=== PATIENT | male | born 1945 | race African-American/Black ===

== ENCOUNTER 2017-04-02 09:18 | Observation (INO) | payer MEDICAID ==
[2017-04-02] VITALS (584 sets, daily range): BP systolic 147–160; BP diastolic 83–110; PULSE 60–76; TEMP 96.9–98.4; O2SAT 49–100
[~2017-04-02] VITALS: Ht 177.8 cm; Wt 58.9 kg
[~2017-04-02 09:18] MED LIST: ALDACTONE 25MG25 M1 PO; ASPI325T6 PO; ASPIRIN 81M81 MG/TA2 PO; ASPIRIN E.C. 8181 MG PO; CEPHALEXIN500 M1 PO; CLONIDINE0.2 MG PO; CORDARONE200 MG/TAB PO; DEMADEX 20MG20 M1 PO; DESYREL 50MG50 MG PO; DETROL LA4 PO; DIOVAN 80MG80 MG PO; FLOMAX 0.40.4 MG/CAP PO; INVANZ INJ1 G/VIAL IV; ISORDIL TITRADO30 MG PO; KLOR-CON M2020 MEQ PO; LANOXIN 0.120.125 MG PO; LASIX 40MG TABL40 MG PO; LASIX20 MG PO; LOPRESSOR100 MG PO; LOPRESSOR50 MG PO; NO HOME MEDICATIONS; NORCO 325 MG-51 TAB; NORCO 325 MG-51 TAB PO; NORCO 325 MG-7.1 TAB PO; PRIL40 PO; REMERON 15M15 MG/TA1 PO; RT SPIRIVA18 MCG IH; TOPROL XL100 MG PO; TOPROL XL200 MG PO; TYLENOL 325MG325 MG PO; VENTOLIN0.09 MG IH; XARELTO15 MG PO; XARELTO20 MG PO; ZANTAC 150MG T150 MG PO; ZANTAC 7575 MG PO; ZESTRIL 10MG10 MG PO; ZESTRIL 20MG TA20 MG PO; ZOFRAN 4MG T4 MG/TAB PO
[2017-04-02 09:42] LABS: BASO # 0.1 (0.0-0.2); EOS # 0.5 (0.0-0.7); EOS % 9.6 % (0-4.0); GRAN # 3.2 (1.4-6.5); GRAN % 64.5 % (42.2-75.2); LYMPH # 0.8 (1.2-3.4); LYMPH % 15.9 % (20.0-51.0); MEAN CELL VOLUME 76 fl (80.0-100.0); MEAN CORPUSCULAR HGB CONC 35 g/dl (33.0-37.0); MEAN PLATELET VOLUME 9.9 fl (7.4-10.4); MONO # 0.4 (0.1-0.6); MONO % 8.6 % (1.7-9.3); PLATELET COUNT 175 K/mm3 (130-400); RED BLOOD COUNT 3.86 M/mm3 (4.20-5.60); REDCELL DISTRIBUTION WIDTH-CV 21.9 % (11.5-14.5); WHITE BLOOD COUNT 4.9 K/mm3 (4.8-10.8)
[2017-04-02 09:45] LABS: INR 1.2 (0.8-3.0); PROTHROMBIN TIME 13.1 SECONDS (9.7-12.8)
[2017-04-02 09:47] LABS: HEMATOCRIT 29.2 % (42.0-52.0); HEMOGLOBIN 10.1 g/dl (13.5-18.0); MEAN CORPUSCULAR HEMOGLOBIN 26 pg (27.0-31.0); PARTIAL THROMBOPLASTIN TIME 33.4 SECONDS (26.0-37.0)
[2017-04-02 10:09] LABS: ADJUSTED CALCIUM 8.7 mg/dL (8.4-10.2); ALBUMIN 3.8 gm/dL (3.5-5.0); BILIRUBIN,TOTAL 5.4 mg/dL (0.0-1.0); CALCIUM 8.5 mg/dL (8.4-10.2); CREATININE, serum 1.06 mg/dL (0.66-1.25); POTASSIUM 3.9 mmol/L (3.4-5.0); TOTAL PROTEIN 7.4 gm/dL (6.4-8.2)
[2017-04-02 10:22] LABS: TROPONIN-I 0.036 ng/mL (0.000-0.034)
[2017-04-02] MEDS ORDERED: PRIL40 PO (14:02)
[2017-04-02] MEDS ORDERED: XARELTO20 MG PO (14:02)
[2017-04-02] MEDS ORDERED: K-DUR20 MEQ PO (14:03)
[2017-04-02] MEDS ORDERED: RT SPIRIVA18 MCG IH (14:05)
[2017-04-03] VITALS (494 sets, daily range): BP systolic 121–140; BP diastolic 71–91; PULSE 63–78; TEMP 96.5–98; O2SAT 40–100
[2017-04-03 06:20] LABS: BASO # 0.1 (0.0-0.2); EOS # 0.4 (0.0-0.7); EOS % 8.1 % (0-4.0); GRAN # 3.5 (1.4-6.5); GRAN % 68.9 % (42.2-75.2); LYMPH # 0.8 (1.2-3.4); LYMPH % 14.9 % (20.0-51.0); MEAN CELL VOLUME 75 fl (80.0-100.0); MEAN CORPUSCULAR HGB CONC 35 g/dl (33.0-37.0); MEAN PLATELET VOLUME 10.6 fl (7.4-10.4); MONO # 0.4 (0.1-0.6); MONO % 6.9 % (1.7-9.3); PLATELET COUNT 201 K/mm3 (130-400); RED BLOOD COUNT 4.34 M/mm3 (4.20-5.60); REDCELL DISTRIBUTION WIDTH-CV 21.8 % (11.5-14.5)
[2017-04-03 06:23] LABS: HEMATOCRIT 32.7 % (42.0-52.0); HEMOGLOBIN 11.3 g/dl (13.5-18.0); MEAN CORPUSCULAR HEMOGLOBIN 26 pg (27.0-31.0)
[2017-04-03 06:33] LABS: CALCIUM 8.7 mg/dL (8.4-10.2); CREATININE, serum 1.15 mg/dL (0.66-1.25); POTASSIUM 3.4 mmol/L (3.4-5.0)
[2017-04-03 06:48] LABS: TROPONIN-I 0.052 ng/mL (0.000-0.034)
[2017-04-03] MEDS ORDERED: INCRUSE EL62.5 MCG/A IH (10:15)
[2017-04-03] MEDS ORDERED: ASPI325T6 PO (10:16)
[2017-04-03] MEDS ORDERED: ZESTRIL 5MG5 MG PO (10:16)
[2017-04-03] MEDS ORDERED: NITROSTAT0.4 MG/TAB SL (10:16)
[2017-04-03] MEDS ORDERED: ASPIRIN 81M81 MG/TA2 PO (16:32)
[2017-04-03] MEDS ORDERED: RT SPIRIVA18 MCG IH (16:32)
== END 2017-04-03 18:17 | disposition home or self-care (01) ==
LOC: COL.ER 09:18 → MEDICAL 10:50 → ICU 10:50 → MEDICAL 10:50 → ICU 10:50 → MEDICAL 10:51 → ICU 04-03 08:14 → MEDICAL 04-03 12:32 → ICU 04-03 12:32 → MEDICAL 04-03 18:17
PROVIDERS: Emergency Medicine; Internal Medicine Interventional Cardiology; Physician Assistant
DX: R07.89 Other chest pain (principal); I50.23 Acute on chronic systolic (congestive) heart failure; J44.9 Chronic obstructive pulmonary disease, unspecified; D64.9 Anemia, unspecified; I12.9 Hypertensive chronic kidney disease with stage 1 through stage 4 chronic kidney disease, or unspecified chronic kidney disease; N18.9 Chronic kidney disease, unspecified; K21.9 Gastro-esophageal reflux disease without esophagitis; E80.7 Disorder of bilirubin metabolism, unspecified; N40.0 Benign prostatic hyperplasia without lower urinary tract symptoms; F17.210 Nicotine dependence, cigarettes, uncomplicated; Z91.11 Patient's noncompliance with dietary regimen; I25.2 Old myocardial infarction; Z86.718 Personal history of other venous thrombosis and embolism; Z79.01 Long term (current) use of anticoagulants; Z95.810 Presence of automatic (implantable) cardiac defibrillator
CPT/HCPCS: 99223-AI; 99239; G0378; J1650; J1940; J2270

== ENCOUNTER 2017-06-14 02:26 | Inpatient (IN) | payer MEDICAID ==
[2017-06-14] VITALS (376 sets, daily range): BP systolic 102–190; BP diastolic 69–120; PULSE 94–103; TEMP 97–97.5; O2SAT 37–100
[~2017-06-14] VITALS: Ht 175.3 cm; Wt 62.2 kg
[~2017-06-14 02:26] MED LIST changes: +INCRUSE EL62.5 MCG/A IH; +K-DUR20 MEQ PO; +NITROSTAT0.4 MG/TAB SL; +ZESTRIL 5MG5 MG PO
[2017-06-14 02:52] LABS: BASO # 0.1 (0.0-0.2); BASO % 1.4 % (0.0-2.0); EOS # 0.2 (0.0-0.7); EOS % 3.6 % (0-4.0); GRAN # 4.8 (1.4-6.5); HEMATOCRIT 31.4 % (42.0-52.0); HEMOGLOBIN 10.8 g/dl (13.5-18.0); LYMPH % 15.3 % (20.0-51.0); MEAN CELL VOLUME 77 fl (80.0-100.0); MEAN CORPUSCULAR HEMOGLOBIN 27 pg (27.0-31.0); MEAN CORPUSCULAR HGB CONC 34 g/dl (33.0-37.0); MEAN PLATELET VOLUME 9.9 fl (7.4-10.4); MONO # 0.5 (0.1-0.6); MONO % 7.4 % (1.7-9.3); PLATELET COUNT 221 K/mm3 (130-400); RED BLOOD COUNT 4.07 M/mm3 (4.20-5.60); REDCELL DISTRIBUTION WIDTH-CV 23.6 % (11.5-14.5); WHITE BLOOD COUNT 6.7 K/mm3 (4.8-10.8)
[2017-06-14 02:53] LABS: INR 1.2 (0.8-3.0); PROTHROMBIN TIME 13.7 SECONDS (9.7-12.8)
[2017-06-14 02:56] LABS: PARTIAL THROMBOPLASTIN TIME 33.8 SECONDS (26.0-37.0)
[2017-06-14 03:00] LABS: ADJUSTED CALCIUM 8.4 mg/dL (8.4-10.2); ALBUMIN 4.1 gm/dL (3.5-5.0); BILIRUBIN,TOTAL 5.5 mg/dL (0.0-1.0); CALCIUM 8.5 mg/dL (8.4-10.2); CREATININE, serum 1.33 mg/dL (0.66-1.25); MAGNESIUM 1.9 mg/dL (1.6-2.3); POTASSIUM 4.5 mmol/L (3.4-5.0)
[2017-06-14 03:12] LABS: TROPONIN-I 0.051 ng/mL (0.000-0.034)
[2017-06-14 04:56] LABS: ARTERIAL BLD GAS O2 SATURATION 85.2 % (92-100); ARTERIAL BLD GAS TCO2 CT 21.6; ARTERIAL BLOOD GAS BASE EXCESS -3.9 (-2-2); ARTERIAL BLOOD GAS HCO3 20.5 meq/L (22-26); ARTERIAL BLOOD GAS PHT 7.38 C (7.35-7.45); ARTERIAL BLOOD GAS PO2 52.1 mmHg (80-100); ARTERIAL BLOOD GAS PO2T 52.1 (80-100); ARTERIAL BLOOD GAS pH 7.38 (7.35-7.45); OXYHEMOGLOBIN 82.1 %
[2017-06-14 04:57] LABS: ALLEN TEST YES; ALLENS TEST RESULT PASS; ATS? YES
[2017-06-14 10:14] LABS: ARTERIAL BLD GAS TCO2 CT 22.5; ARTERIAL BLOOD GAS BASE EXCESS -6.3 (-2-2); ARTERIAL BLOOD GAS PHT 7.25 C (7.35-7.45); ARTERIAL BLOOD GAS PO2 98.4 mmHg (80-100); ARTERIAL BLOOD GAS PO2T 98.4 (80-100); ARTERIAL BLOOD GAS pH 7.25 (7.35-7.45); OXYHEMOGLOBIN 92.9 %
[2017-06-14 10:15] LABS: ABG VENTILATOR TIDAL VOLUME 450 mL; ATS? YES
[2017-06-14] MEDS ORDERED: IPRATROPIUM BROM3 M1 IH (10:49)
[2017-06-14] MEDS ORDERED: INCRUSE EL62.5 MCG/A IH (10:49)
[2017-06-14] MEDS ORDERED: HEPARIN SOD5000 U/ML SQ (10:50)
[2017-06-14] MEDS ORDERED: APRESOLINE 220 MG/ML IV (10:54)
[2017-06-14] MEDS ORDERED: LOPRESSOR I5 MG/5 ML IV (10:55)
[2017-06-14] MEDS ORDERED: ENALAPRILAT IV (10:59)
[2017-06-14] MEDS ORDERED: ASPIRIN 30300 MG/SUP RC (11:00)
[2017-06-14] MEDS ORDERED: SOLU-MEDRO40 MG/VIA1 IV (11:02)
[2017-06-14] MEDS ORDERED: PROTONIX I40 MG/VIAL IV (11:04)
== END 2017-06-14 12:20 | disposition short-term general hospital (02) | DRG 163 ==
LOC: COL.ER 02:26 → ICU 03:31 → COL.ER 03:31 → ICU 12:20
PROVIDERS: Emergency Medicine; Internal Medicine Pulmonary Disease; Nurse Practitioner Family
PROC: 0BH17EZ Insertion of Endotracheal Airway into Trachea, Via Natural or Artificial Opening (ICD-10-PCS; principal; 2017-06-14)
PROC: 0B968ZZ Drainage of Right Lower Lobe Bronchus, Via Natural or Artificial Opening Endoscopic (ICD-10-PCS; 2017-06-14)
PROC: 0B958ZZ Drainage of Right Middle Lobe Bronchus, Via Natural or Artificial Opening Endoscopic (ICD-10-PCS; 2017-06-14)
PROC: 0B988ZZ Drainage of Left Upper Lobe Bronchus, Via Natural or Artificial Opening Endoscopic (ICD-10-PCS; 2017-06-14)
PROC: 0B9B8ZZ Drainage of Left Lower Lobe Bronchus, Via Natural or Artificial Opening Endoscopic (ICD-10-PCS; 2017-06-14)
PROC: 5A1935Z Respiratory Ventilation, Less than 24 Consecutive Hours (ICD-10-PCS; 2017-06-14)
DX: J96.01 Acute respiratory failure with hypoxia (principal); I50.23 Acute on chronic systolic (congestive) heart failure; I13.0 Hypertensive heart and chronic kidney disease with heart failure and stage 1 through stage 4 chronic kidney disease, or unspecified chronic kidney disease; I42.0 Dilated cardiomyopathy; N18.9 Chronic kidney disease, unspecified; Z95.810 Presence of automatic (implantable) cardiac defibrillator; I25.10 Atherosclerotic heart disease of native coronary artery without angina pectoris; J44.9 Chronic obstructive pulmonary disease, unspecified; F17.210 Nicotine dependence, cigarettes, uncomplicated; I08.0 Rheumatic disorders of both mitral and aortic valves
CPT/HCPCS: 99223-AI; C9113; J1650; J1940; J2060; J2250; J2704; J2920; J3010; J7060

== ENCOUNTER 2017-07-16 08:47 | Inpatient (IN) | payer MEDICAID ==
[2017-07-16] VITALS (13 sets, daily range): BP systolic 113–147; BP diastolic 60–87; PULSE 60–71; TEMP 97.3–97.9
[~2017-07-16] VITALS: Ht 172.7 cm; Wt 60.9 kg
[~2017-07-16 08:47] MED LIST changes: +APRESOLINE 220 MG/ML IV; +ASPIRIN 30300 MG/SUP RC; +ENALAPRILAT IV; +HEPARIN SOD5000 U/ML SQ; +IPRATROPIUM BROM3 M1 IH; +LOPRESSOR I5 MG/5 ML IV; +PROTONIX I40 MG/VIAL IV; +SOLU-MEDRO40 MG/VIA1 IV
[2017-07-16 09:44] LABS: BASO % 0.3 % (0.0-2.0); EOS # 0.1 (0.0-0.7); GRAN # 8.2 (1.4-6.5); GRAN % 81.4 % (42.2-75.2); LYMPH # 0.8 (1.2-3.4); LYMPH % 8.3 % (20.0-51.0); MEAN CELL VOLUME 73 fl (80.0-100.0); MEAN CORPUSCULAR HGB CONC 33 g/dl (33.0-37.0); MEAN PLATELET VOLUME 10.6 fl (7.4-10.4); MONO # 0.8 (0.1-0.6); MONO % 8.3 % (1.7-9.3); PLATELET COUNT 316 K/mm3 (130-400); RED BLOOD COUNT 2.63 M/mm3 (4.20-5.60); REDCELL DISTRIBUTION WIDTH-CV 20.8 % (11.5-14.5); WHITE BLOOD COUNT 10.1 K/mm3 (4.8-10.8)
[2017-07-16 09:46] LABS: INR 1.3 (0.8-3.0); PROTHROMBIN TIME 14.1 SECONDS (9.7-12.8)
[2017-07-16 09:49] LABS: HEMATOCRIT 19.1 % (42.0-52.0); HEMOGLOBIN 6.3 g/dl (13.5-18.0); MEAN CORPUSCULAR HEMOGLOBIN 24 pg (27.0-31.0); PARTIAL THROMBOPLASTIN TIME 29.7 SECONDS (26.0-37.0)
[2017-07-16 09:51] LABS: ARTERIAL BLD GAS O2 SATURATION 95.3 % (92-100); ARTERIAL BLOOD GAS BASE EXCESS 2.4 (-2-2); ARTERIAL BLOOD GAS HCO3 25.9 meq/L (22-26); ARTERIAL BLOOD GAS PO2 83.6 mmHg (80-100); ARTERIAL BLOOD GAS pH 7.49 (7.35-7.45); OXYHEMOGLOBIN 92.8 %
[2017-07-16 09:53] LABS: ALLEN TEST YES; ALLENS TEST RESULT PASS; ATS? YES
[2017-07-16 10:04] LABS: ADJUSTED CALCIUM 8.8 mg/dL (8.4-10.2); BILIRUBIN,TOTAL 1.7 mg/dL (0.0-1.0); CREATININE, serum 1.25 mg/dL (0.66-1.25); POTASSIUM 3.5 mmol/L (3.4-5.0); TOTAL PROTEIN 6.8 gm/dL (6.4-8.2)
[2017-07-16 10:22] LABS: TROPONIN-I 0.092 ng/mL (0.000-0.034)
[2017-07-16] MEDS ORDERED: IMDUR 30MG30 MG/TAB PO (13:16)
[2017-07-16] MEDS ORDERED: ZIAC 10/6.25M1 UDTAB PO (13:17)
[2017-07-16] MEDS ORDERED: PROSCAR 5MG5 MG PO (13:17)
[2017-07-16] MEDS ORDERED: APRESOLINE 25MG25 MG PO (13:19)
[2017-07-16] MEDS ORDERED: PREDNISONE10 MG PO (13:20)
[2017-07-16] MEDS ORDERED: NITROSTAT0.4 MG/TAB SL (13:21)
[2017-07-16] MEDS ORDERED: ZANTAC 150MG T150 MG PO (13:22)
[2017-07-16] MEDS ORDERED: PRIL40 PO (13:22)
[2017-07-16] MEDS ORDERED: COLACE 100100 MG/CAP PO (13:23)
[2017-07-16] MEDS ORDERED: VENTOLIN0.09 MG IH (13:24)
[2017-07-16] MEDS ORDERED: ASPIRIN 81M81 MG/TA2 PO (13:24)
[2017-07-16] MEDS ORDERED: CHANTIX START M1 TAB PO (13:25)
[2017-07-16 14:51] LABS: HEMATOCRIT 17.8 % (42.0-52.0)
[2017-07-16 14:53] LABS: RETIC % 4.1 % (0.5-3.52)
[2017-07-16 15:55] LABS: TOTAL IRON BINDING CAPACITY 158 ug/dL (261-462)
[2017-07-16 16:22] LABS: FERRITIN 902 ng/mL (18-464)
[2017-07-17] VITALS (10 sets, daily range): BP systolic 105–150; BP diastolic 52–75; PULSE 41–86; TEMP 97.5–98.6
[2017-07-17 07:30] LABS: BASO % 0.4 % (0.0-2.0); EOS # 0.1 (0.0-0.7); EOS % 1.1 % (0-4.0); GRAN # 7.9 (1.4-6.5); GRAN % 82.7 % (42.2-75.2); LYMPH # 0.8 (1.2-3.4); LYMPH % 8.4 % (20.0-51.0); MEAN CELL VOLUME 73 fl (80.0-100.0); MEAN CORPUSCULAR HGB CONC 33 g/dl (33.0-37.0); MEAN PLATELET VOLUME 9.9 fl (7.4-10.4); MONO # 0.7 (0.1-0.6); MONO % 6.8 % (1.7-9.3); PLATELET COUNT 343 K/mm3 (130-400); RED BLOOD COUNT 3.19 M/mm3 (4.20-5.60); REDCELL DISTRIBUTION WIDTH-CV 20.3 % (11.5-14.5); WHITE BLOOD COUNT 9.6 K/mm3 (4.8-10.8)
[2017-07-17 07:35] LABS: HEMATOCRIT 23.4 % (42.0-52.0); HEMOGLOBIN 7.7 g/dl (13.5-18.0); MEAN CORPUSCULAR HEMOGLOBIN 24 pg (27.0-31.0)
[2017-07-17 07:44] LABS: CALCIUM 8.2 mg/dL (8.4-10.2); CREATININE, serum 1.17 mg/dL (0.66-1.25); MAGNESIUM 1.6 mg/dL (1.6-2.3); POTASSIUM 3.3 mmol/L (3.4-5.0)
[2017-07-17 08:50] LABS: PH 8 (5-8); SQUAMOUS EPITHELIAL 0-2 /hpf; URINE APPEARANCE Cloudy; URINE BACTERIA Rare /hpf; URINE BILIRUBIN Negative (NEGATIVE); URINE BLOOD 1+ (NEGATIVE); URINE COLOR Yellow; URINE GLUCOSE Negative (NEGATIVE); URINE KETONE Negative (NEGATIVE); URINE RBC 0-2 /hpf; URINE UROBILINOGEN Negative (NEGATIVE); URINE WBC >50 /hpf
[2017-07-17 15:48] LABS: HEMATOCRIT 24.6 % (42.0-52.0); HEMOGLOBIN 8.2 g/dl (13.5-18.0)
[2017-07-17 23:08] LABS: HEMATOCRIT 25.4 % (42.0-52.0); HEMOGLOBIN 8.4 g/dl (13.5-18.0)
[2017-07-18] VITALS (12 sets, daily range): BP systolic 129–161; BP diastolic 66–95; PULSE 61–74; TEMP 97.4–98.6
[2017-07-18 07:42] LABS: BASO % 0.2 % (0.0-2.0); EOS # 0.1 (0.0-0.7); EOS % 0.9 % (0-4.0); GRAN # 6.4 (1.4-6.5); GRAN % 79.2 % (42.2-75.2); LYMPH % 11.8 % (20.0-51.0); MEAN CELL VOLUME 76 fl (80.0-100.0); MEAN CORPUSCULAR HGB CONC 33 g/dl (33.0-37.0); MEAN PLATELET VOLUME 9.9 fl (7.4-10.4); MONO # 0.6 (0.1-0.6); MONO % 7.2 % (1.7-9.3); PLATELET COUNT 329 K/mm3 (130-400); RED BLOOD COUNT 3.06 M/mm3 (4.20-5.60); REDCELL DISTRIBUTION WIDTH-CV 21.8 % (11.5-14.5); WHITE BLOOD COUNT 8.1 K/mm3 (4.8-10.8)
[2017-07-18 07:44] LABS: HEMATOCRIT 23.2 % (42.0-52.0); HEMOGLOBIN 7.6 g/dl (13.5-18.0); MEAN CORPUSCULAR HEMOGLOBIN 25 pg (27.0-31.0)
[2017-07-18 07:57] LABS: CALCIUM 8.4 mg/dL (8.4-10.2); CREATININE, serum 1.15 mg/dL (0.66-1.25); POTASSIUM 4.1 mmol/L (3.4-5.0)
[2017-07-18 09:04] LABS: ERYTHROCYTE SEDIMENTATION RATE 35 mm/hr (0-30)
[2017-07-18 21:00] LABS: HEMATOCRIT 25.9 % (42.0-52.0); HEMOGLOBIN 8.8 g/dl (13.5-18.0)
[2017-07-19 03:13] VITALS: BP 167/78; PULSE 51; TEMP 97.5
[2017-07-19 05:32] LABS: BASO % 0.4 % (0.0-2.0); EOS # 0.1 (0.0-0.7); EOS % 0.6 % (0-4.0); GRAN # 7.7 (1.4-6.5); GRAN % 79.1 % (42.2-75.2); LYMPH # 1.2 (1.2-3.4); LYMPH % 11.9 % (20.0-51.0); MEAN CELL VOLUME 75 fl (80.0-100.0); MEAN CORPUSCULAR HGB CONC 33 g/dl (33.0-37.0); MEAN PLATELET VOLUME 9.7 fl (7.4-10.4); MONO # 0.7 (0.1-0.6); PLATELET COUNT 372 K/mm3 (130-400); RED BLOOD COUNT 3.39 M/mm3 (4.20-5.60); REDCELL DISTRIBUTION WIDTH-CV 22.4 % (11.5-14.5); WHITE BLOOD COUNT 9.8 K/mm3 (4.8-10.8)
[2017-07-19 05:39] LABS: HEMATOCRIT 25.4 % (42.0-52.0); HEMOGLOBIN 8.4 g/dl (13.5-18.0); MEAN CORPUSCULAR HEMOGLOBIN 25 pg (27.0-31.0)
[2017-07-19 05:41] LABS: CALCIUM 8.5 mg/dL (8.4-10.2); CREATININE, serum 1.21 mg/dL (0.66-1.25); POTASSIUM 4.5 mmol/L (3.4-5.0)
[2017-07-19 08:10] VITALS: BP 150/71; PULSE 67; TEMP 97.7
[2017-07-19 08:45] LABS: HAPTOGLOBIN 124 mg/dL (36-195)
[2017-07-19] MEDS ORDERED: IRON TABLETS325 MG PO (11:38)
[2017-07-19] MEDS ORDERED: IMDUR 30MG30 MG/TAB PO (11:39)
[2017-07-21 10:22] LABS: IEPS IGA 409 mg/dL (101-645); IEPS IGG 1915 mg/dL (540-1822); IEPS TP 6.4 g/dL (6.0-7.6)
[2017-07-21 13:21] LABS: ALBUMIN FRACTION 2.7 g/dL (2.6-4.5); ALBUMIN PERCENT 42.7 % (48.7-61.8); ALPHA 1 FRACTION 0.6 g/dL (0.3-0.5); ALPHA 2 FRACTION 0.7 g/dL (0.6-1.2); ALPHA 2 PERCENT 11.2 % (8.4-17.5); BETA 1 FRACTION 0.3 g/dL (0.4-0.6); BETA 1 PERCENT 4.9 % (5.4-8.9); BETA 2 FRACTION 0.4 g/dL (0.2-0.5); BETA 2 PERCENT 5.5 % (3.8-7.7); IEPS GAMMA FRACTION 1.7 g/dL (0.4-1.7); IEPS GAMMA PERCENTAGE 26.7 % (8.1-23.0); IEPS IGM 77 mg/dL (22-240)
[2017-07-22 18:54] LABS: KAPPA FREE LIGHT CHAIN-SERUM 12.9 mg/dL (())
[2017-07-23 15:23] LABS: HEMOGLOBIN A2 2.7 % (0.0-3.5); HEMOGLOBIN F <2.0 % (0.0-2.0)
== END 2017-07-19 12:58 | disposition home or self-care (01) | DRG 811 ==
LOC: COL.ER 08:47 → MEDICAL 10:47
PROVIDERS: Emergency Medicine; Internal Medicine; Internal Medicine Gastroenterology; Nurse Practitioner; Physician Assistant
PROC: 0DJ08ZZ Inspection of Upper Intestinal Tract, Via Natural or Artificial Opening Endoscopic (ICD-10-PCS; principal; 2017-07-18 15:15)
DX: D50.0 Iron deficiency anemia secondary to blood loss (chronic) (principal); I21.4 Non-ST elevation (NSTEMI) myocardial infarction; I13.0 Hypertensive heart and chronic kidney disease with heart failure and stage 1 through stage 4 chronic kidney disease, or unspecified chronic kidney disease; I50.22 Chronic systolic (congestive) heart failure; I42.0 Dilated cardiomyopathy; E44.0 Moderate protein-calorie malnutrition; Z66 Do not resuscitate; I25.10 Atherosclerotic heart disease of native coronary artery without angina pectoris; Z95.0 Presence of cardiac pacemaker; J44.9 Chronic obstructive pulmonary disease, unspecified; N18.9 Chronic kidney disease, unspecified; F17.210 Nicotine dependence, cigarettes, uncomplicated; E87.6 Hypokalemia
CPT/HCPCS: 99223-AI; 99232-AI; 99239; J2405; J3230; J7030; J7512; P9016

== ENCOUNTER 2017-08-15 09:13 | Emergency (ER) | payer MEDICAID ==
[~2017-08-15] VITALS: Ht 177.8 cm; Wt 72.7 kg
[~2017-08-15 09:13] MED LIST changes: +APRESOLINE 25MG25 MG PO; +CHANTIX START M1 TAB PO; +COLACE 100100 MG/CAP PO; +IMDUR 30MG30 MG/TAB PO; +IRON TABLETS325 MG PO; +PREDNISONE10 MG PO; +PROSCAR 5MG5 MG PO; +ZIAC 10/6.25M1 UDTAB PO
[2017-08-15 09:16] VITALS: TEMP 97.1
[2017-08-15 10:50] VITALS: BP 155/88; PULSE 61
== END 2017-08-15 10:50 | disposition home or self-care (01) ==
LOC: COL.ER 09:13
DX: M25.561 Pain in right knee (principal); I25.10 Atherosclerotic heart disease of native coronary artery without angina pectoris; I25.2 Old myocardial infarction; I11.0 Hypertensive heart disease with heart failure; I50.9 Heart failure, unspecified; J44.9 Chronic obstructive pulmonary disease, unspecified; F17.210 Nicotine dependence, cigarettes, uncomplicated; Z95.0 Presence of cardiac pacemaker; Z79.82 Long term (current) use of aspirin
CPT/HCPCS: L1830

== ENCOUNTER 2017-09-03 12:31 | Observation (INO) | payer MEDICAID ==
[~2017-09-03] VITALS: Ht 165.1 cm; Wt 68.9 kg
[2017-09-03 13:11] VITALS: BP 100/59; PULSE 74; TEMP 98
[2017-09-03] MEDS ORDERED: MIRALAX PA17 GM/Dose PO (13:26)
[2017-09-03] MEDS ORDERED: ENTRESTO 24 MG1 EACH PO (13:26)
[2017-09-03] MEDS ORDERED: DEMADEX 20MG20 M1 PO (13:27)
[2017-09-03 14:31] LABS: BASO # 0.1 (0.0-0.2); BASO % 0.8 % (0.0-2.0); EOS # 0.3 (0.0-0.7); EOS % 3.9 % (0-4.0); GRAN # 4.6 (1.4-6.5); GRAN % 73.3 % (42.2-75.2); LYMPH # 0.8 (1.2-3.4); LYMPH % 12.5 % (20.0-51.0); MEAN CELL VOLUME 78 fl (80.0-100.0); MEAN CORPUSCULAR HGB CONC 34 g/dl (33.0-37.0); MEAN PLATELET VOLUME 10.2 fl (7.4-10.4); MONO # 0.6 (0.1-0.6); MONO % 9.2 % (1.7-9.3); PLATELET COUNT 299 K/mm3 (130-400); RED BLOOD COUNT 4.24 M/mm3 (4.20-5.60); WHITE BLOOD COUNT 6.3 K/mm3 (4.8-10.8)
[2017-09-03 14:32] LABS: HEMATOCRIT 33.2 % (42.0-52.0); HEMOGLOBIN 11.3 g/dl (13.5-18.0); MEAN CORPUSCULAR HEMOGLOBIN 27 pg (27.0-31.0)
[2017-09-03 14:56] LABS: CALCIUM 8.2 mg/dL (8.4-10.2); CREATININE, serum 1.83 mg/dL (0.66-1.25); POTASSIUM 3.8 mmol/L (3.4-5.0)
[2017-09-03 15:07] LABS: TROPONIN-I 0.051 ng/mL (0.000-0.034)
[2017-09-03 15:18] LABS: THYROID STIMULATING HORMONE 3.61 uIU/mL (0.465-4.680)
[2017-09-03 16:04] VITALS: BP 115/76; PULSE 66; TEMP 97.6
[2017-09-03 19:40] VITALS: BP 142/77; PULSE 66; TEMP 98
[2017-09-03 23:22] VITALS: BP 156/87; PULSE 68; TEMP 98
[2017-09-04 02:54] VITALS: BP 158/97; PULSE 86; TEMP 97.3
[2017-09-04 07:39] VITALS: BP 140/93; PULSE 72; TEMP 97.5
[2017-09-04 11:25] VITALS: BP 143/73; PULSE 65; TEMP 97.6
[2017-09-04 15:35] VITALS: BP 130/72; PULSE 68; TEMP 97.5
== END 2017-09-04 17:31 | disposition home or self-care (01) ==
LOC: MEDICAL 12:31
PROVIDERS: Internal Medicine Interventional Cardiology
DX: I95.9 Hypotension, unspecified (principal); E78.5 Hyperlipidemia, unspecified; I13.0 Hypertensive heart and chronic kidney disease with heart failure and stage 1 through stage 4 chronic kidney disease, or unspecified chronic kidney disease; N18.9 Chronic kidney disease, unspecified; I50.22 Chronic systolic (congestive) heart failure; F17.210 Nicotine dependence, cigarettes, uncomplicated; Z90.79 Acquired absence of other genital organ(s); Z95.810 Presence of automatic (implantable) cardiac defibrillator; Z95.818 Presence of other cardiac implants and grafts
CPT/HCPCS: G0378; G0379

== ENCOUNTER → 2017-09-11 | Outpatient (CLI) | payer MEDICAID ==
[~2017-09-11] MED LIST changes: +ENTRESTO 24 MG1 EACH PO; +MIRALAX PA17 GM/Dose PO
== END ==
LOC: COL.PUL 13:00
DX: I50.9 Heart failure, unspecified (principal); R06.02 Shortness of breath; R05 Cough; F17.210 Nicotine dependence, cigarettes, uncomplicated

== ENCOUNTER → 2017-10-22 | Outpatient (CLI) | payer MEDICAID | LOC: COL.RAD 13:07 | DX: Z01.89 Encounter for other specified special examinations (principal) ==

== ENCOUNTER 2017-10-26 14:24 | Observation (INO) | payer MEDICAID ==
[~2017-10-26] VITALS: Ht 167.6 cm; Wt 66.5 kg
[~2017-10-26 14:24] MED LIST changes: +CHANTIX 1MG1 MG PO; -CHANTIX START M1 TAB PO
[2017-10-26 14:33] VITALS: BP 125/74; PULSE 82; TEMP 97.6
[2017-10-26] MEDS ORDERED: IMDUR 30MG30 MG/TAB PO (14:53)
[2017-10-26] MEDS ORDERED: LANOXIN 0.120.125 MG PO (14:54)
[2017-10-26] MEDS ORDERED: PROSCAR 5MG5 MG PO (14:54)
[2017-10-26] MEDS ORDERED: DEMADEX 20MG20 M1 PO (14:55)
[2017-10-26 16:34] LABS: BASO % 0.9 % (0.0-2.0); EOS # 0.3 (0.0-0.7); EOS % 6.7 % (0-4.0); GRAN # 3.1 (1.4-6.5); HEMATOCRIT 27.9 % (42.0-52.0); HEMOGLOBIN 9.4 g/dl (13.5-18.0); LYMPH # 0.8 (1.2-3.4); LYMPH % 17.4 % (20.0-51.0); MEAN CELL VOLUME 81 fl (80.0-100.0); MEAN CORPUSCULAR HEMOGLOBIN 27 pg (27.0-31.0); MEAN CORPUSCULAR HGB CONC 34 g/dl (33.0-37.0); MEAN PLATELET VOLUME 9.8 fl (7.4-10.4); MONO # 0.4 (0.1-0.6); MONO % 8.6 % (1.7-9.3); PLATELET COUNT 244 K/mm3 (130-400); RED BLOOD COUNT 3.46 M/mm3 (4.20-5.60); WHITE BLOOD COUNT 4.7 K/mm3 (4.8-10.8)
[2017-10-26 16:45] LABS: CALCIUM 8.5 mg/dL (8.4-10.2); CREATININE, serum 1.43 mg/dL (0.66-1.25); POTASSIUM 4.1 mmol/L (3.4-5.0)
[2017-10-26 17:39] VITALS: BP 150/82; PULSE 73; TEMP 99.1
[2017-10-26 21:49] VITALS: BP 104/48; BP 156/84; PULSE 72; PULSE 91; TEMP 98.4
[2017-10-27] VITALS (9 sets, daily range): BP systolic 109–161; BP diastolic 59–95; PULSE 66–100; TEMP 97.4–98.3
[2017-10-27 07:05] LABS: BASO # 0.1 (0.0-0.2); BASO % 1.1 % (0.0-2.0); EOS # 0.4 (0.0-0.7); EOS % 9.4 % (0-4.0); GRAN # 2.4 (1.4-6.5); GRAN % 55.3 % (42.2-75.2); LYMPH # 1.1 (1.2-3.4); LYMPH % 24.3 % (20.0-51.0); MEAN CELL VOLUME 79 fl (80.0-100.0); MEAN CORPUSCULAR HGB CONC 35 g/dl (33.0-37.0); MEAN PLATELET VOLUME 10.2 fl (7.4-10.4); MONO # 0.4 (0.1-0.6); MONO % 9.4 % (1.7-9.3); PLATELET COUNT 268 K/mm3 (130-400); RED BLOOD COUNT 3.67 M/mm3 (4.20-5.60); WHITE BLOOD COUNT 4.4 K/mm3 (4.8-10.8)
[2017-10-27 07:08] LABS: HEMATOCRIT 28.9 % (42.0-52.0); MEAN CORPUSCULAR HEMOGLOBIN 27 pg (27.0-31.0)
[2017-10-27 07:12] LABS: CALCIUM 8.9 mg/dL (8.4-10.2); CREATININE, serum 1.18 mg/dL (0.66-1.25); MAGNESIUM 1.9 mg/dL (1.6-2.3); POTASSIUM 3.8 mmol/L (3.4-5.0)
== END 2017-10-27 19:05 | disposition home or self-care (01) ==
LOC: SDCO 14:24 → SURG 14:25 → SDCO 10-27 14:45 → SURG 10-27 19:05
PROVIDERS: Internal Medicine
DX: D50.9 Iron deficiency anemia, unspecified (principal); K57.30 Diverticulosis of large intestine without perforation or abscess without bleeding; J44.9 Chronic obstructive pulmonary disease, unspecified; I42.8 Other cardiomyopathies; I13.0 Hypertensive heart and chronic kidney disease with heart failure and stage 1 through stage 4 chronic kidney disease, or unspecified chronic kidney disease; I50.9 Heart failure, unspecified; N18.9 Chronic kidney disease, unspecified; F17.210 Nicotine dependence, cigarettes, uncomplicated; Z86.718 Personal history of other venous thrombosis and embolism; K21.9 Gastro-esophageal reflux disease without esophagitis; N40.0 Benign prostatic hyperplasia without lower urinary tract symptoms
CPT/HCPCS: G0378; J2250; J2405; J3010; J7030

== ENCOUNTER 2017-12-22 12:23 | Emergency (ER) | payer MEDICAID ==
[~2017-12-22] VITALS: Ht 188 cm; Wt 81.8 kg
[2017-12-22 12:25] VITALS: TEMP 97
[2017-12-22 12:45] LABS: BASO # 0.1 (0.0-0.2); BASO % 1.3 % (0.0-2.0); EOS # 0.4 (0.0-0.7); EOS % 9.2 % (0-4.0); GRAN # 2.7 (1.4-6.5); GRAN % 59.6 % (42.2-75.2); LYMPH % 21.2 % (20.0-51.0); MEAN CELL VOLUME 83 fl (80.0-100.0); MEAN CORPUSCULAR HGB CONC 36 g/dl (33.0-37.0); MEAN PLATELET VOLUME 10.2 fl (7.4-10.4); MONO # 0.4 (0.1-0.6); MONO % 7.8 % (1.7-9.3); PLATELET COUNT 185 K/mm3 (130-400); RED BLOOD COUNT 3.94 M/mm3 (4.20-5.60); REDCELL DISTRIBUTION WIDTH-CV 21.7 % (11.5-14.5)
[2017-12-22 12:47] LABS: HEMATOCRIT 32.7 % (42.0-52.0); HEMOGLOBIN 11.7 g/dl (13.5-18.0); MEAN CORPUSCULAR HEMOGLOBIN 30 pg (27.0-31.0)
[2017-12-22 12:49] LABS: INR 1.1 (0.8-3.0); PROTHROMBIN TIME 12.4 SECONDS (9.7-12.8)
[2017-12-22 12:57] LABS: PARTIAL THROMBOPLASTIN TIME 31.1 SECONDS (26.0-37.0)
[2017-12-22 13:54] LABS: ALBUMIN 4.1 gm/dL (3.5-5.0); BILIRUBIN,TOTAL 4.4 mg/dL (0.0-1.0); CREATININE, serum 1.49 mg/dL (0.66-1.25)
[2017-12-22 14:06] LABS: TROPONIN-I 0.015 ng/mL (0.000-0.034)
[2017-12-22 17:15] VITALS: BP 127/80; PULSE 78
== END 2017-12-22 17:20 | disposition home or self-care (01) ==
LOC: COL.ER 12:23
PROVIDERS: Emergency Medicine
DX: R07.89 Other chest pain (principal); I11.0 Hypertensive heart disease with heart failure; I50.9 Heart failure, unspecified; I48.91 Unspecified atrial fibrillation; I25.2 Old myocardial infarction; J44.9 Chronic obstructive pulmonary disease, unspecified; K21.9 Gastro-esophageal reflux disease without esophagitis; N40.0 Benign prostatic hyperplasia without lower urinary tract symptoms; I42.8 Other cardiomyopathies; F17.210 Nicotine dependence, cigarettes, uncomplicated; Z86.73 Personal history of transient ischemic attack (TIA), and cerebral infarction without residual deficits; Z86.718 Personal history of other venous thrombosis and embolism; Z95.0 Presence of cardiac pacemaker; Z79.82 Long term (current) use of aspirin
CPT/HCPCS: Q9967

== ENCOUNTER → 2019-01-23 | Emergency (ER) | payer MEDICAID ==
[~2019-01-23] VITALS: Ht 180.3 cm; Wt 77.3 kg
[2019-01-23 20:45] VITALS: BP 184/99; TEMP 99.1
[2019-01-23 22:00] LABS: BASO # 0.1 (0.0-0.2); BASO % 1.1 % (0.0-2.0); EOS # 0.5 (0.0-0.7); EOS % 10.1 % (0-4.0); GRAN # 3.1 (1.4-6.5); GRAN % 65.7 % (42.2-75.2); HEMATOCRIT 29.6 % (42.0-52.0); HEMOGLOBIN 10.4 g/dl (13.5-18.0); LYMPH # 0.7 (1.2-3.4); LYMPH % 14.9 % (20.0-51.0); MEAN CELL VOLUME 78 fl (80.0-100.0); MEAN CORPUSCULAR HEMOGLOBIN 27 pg (27.0-31.0); MEAN CORPUSCULAR HGB CONC 35 g/dl (33.0-37.0); MONO # 0.4 (0.1-0.6); PLATELET COUNT 213 K/mm3 (130-400); REDCELL DISTRIBUTION WIDTH-CV 20.7 % (11.5-14.5)
[2019-01-23 22:14] LABS: ALANINE AMINOTRANSFERASE 16 U/L (21-72); ALBUMIN 3.9 gm/dL (3.5-5.0); ALKALINE PHOSPHATASE 78 U/L (50-136); ANION GAP 7 mmol/L (7-16); AST,SGOT 19 U/L (15-37); BILIRUBIN,TOTAL 2.8 mg/dL (0.0-1.0); BLOOD UREA NITROGEN 20 mg/dL (9-20); CALCIUM 8.6 mg/dL (8.4-10.2); CARBON DIOXIDE 28 mmol/L (22-30); CHLORIDE 104 mmol/L (98-107); CREATININE, serum 1.26 mg/dL (0.66-1.25); GLUCOSE 94 mg/dL (74-106); POTASSIUM 4.3 mmol/L (3.4-5.0); SODIUM 138 mmol/L (137-145); TOTAL PROTEIN 7.7 gm/dL (6.4-8.2)
[2019-01-23 22:17] LABS: C-REACTIVE PROTEIN < 0.5 mg/dL (0.0-0.9)
[2019-01-23 22:20] LABS: DIGOXIN 0.6 ng/mL (0.8-2.0)
[2019-01-23 22:22] LABS: TROPONIN-I 0.015 ng/mL (0.000-0.035)
[2019-01-23 23:25] VITALS: PULSE 78
== END ==
LOC: COL.ER 20:34
PROVIDERS: Emergency Medicine
DX: M54.12 Radiculopathy, cervical region (principal); J44.9 Chronic obstructive pulmonary disease, unspecified; I25.10 Atherosclerotic heart disease of native coronary artery without angina pectoris; F17.210 Nicotine dependence, cigarettes, uncomplicated; I10 Essential (primary) hypertension; Z95.0 Presence of cardiac pacemaker

== ENCOUNTER 2019-03-24 10:09 | Emergency (ER) | payer MEDICARE, MEDICAID ==
[~2019-03-24] VITALS: Ht 185.4 cm; Wt 63.6 kg
[2019-03-24 10:12] VITALS: TEMP 97.6
[2019-03-24 11:08] LABS: BASO % 0.8 % (0.0-2.0); EOS # 0.4 (0.0-0.7); EOS % 8.5 % (0-4.0); GRAN # 3.1 (1.4-6.5); GRAN % 60.6 % (42.2-75.2); LYMPH % 19.9 % (20.0-51.0); MEAN CELL VOLUME 81 fl (80.0-100.0); MEAN CORPUSCULAR HGB CONC 35 g/dl (33.0-37.0); MEAN PLATELET VOLUME 9.7 fl (7.4-10.4); MONO # 0.5 (0.1-0.6); MONO % 9.6 % (1.7-9.3); PLATELET COUNT 224 K/mm3 (130-400); RED BLOOD COUNT 3.45 M/mm3 (4.20-5.60); REDCELL DISTRIBUTION WIDTH-CV 21.3 % (11.5-14.5)
[2019-03-24 11:09] LABS: HEMOGLOBIN 9.7 g/dl (13.5-18.0); MEAN CORPUSCULAR HEMOGLOBIN 28 pg (27.0-31.0)
[2019-03-24 11:12] LABS: INR 1.2 (0.8-3.0); PROTHROMBIN TIME 13.5 SECONDS (9.7-12.8)
[2019-03-24 11:21] LABS: ALBUMIN 3.6 gm/dL (3.5-5.0); BILIRUBIN,TOTAL 2.2 mg/dL (0.0-1.0); CALCIUM 7.9 mg/dL (8.4-10.2); CREATININE, serum 1.92 (0.66-1.25); POTASSIUM 3.8 mmol/L (3.4-5.0)
[2019-03-24 11:31] LABS: TROPONIN-I 0.025 ng/mL (0.000-0.035)
[2019-03-24 13:30] VITALS: BP 108/72; PULSE 72
== END 2019-03-24 13:30 | disposition home or self-care (01) ==
LOC: COL.ER 10:09
PROVIDERS: Family Medicine
DX: E87.1 Hypo-osmolality and hyponatremia (principal); E86.0 Dehydration; Z95.0 Presence of cardiac pacemaker
CPT/HCPCS: J7040

== ENCOUNTER 2019-04-03 21:40 | Inpatient (IN) | payer MEDICAID ==
[~2019-04-03] VITALS: Ht 175.3 cm; Wt 64.9 kg
[2019-04-03 22:05] LABS: BASO # 0.1 (0.0-0.2); BASO % 0.9 % (0.0-2.0); EOS # 0.5 (0.0-0.7); EOS % 6.9 % (0-4.0); GRAN # 4.9 (1.4-6.5); GRAN % 70.7 % (42.2-75.2); HEMATOCRIT 28.7 % (42.0-52.0); HEMOGLOBIN 10.5 g/dl (13.5-18.0); LYMPH % 13.8 % (20.0-51.0); MEAN CELL VOLUME 78 fl (80.0-100.0); MEAN CORPUSCULAR HEMOGLOBIN 29 pg (27.0-31.0); MEAN CORPUSCULAR HGB CONC 37 g/dl (33.0-37.0); MEAN PLATELET VOLUME 10.5 fl (7.4-10.4); MONO # 0.5 (0.1-0.6); MONO % 7.4 % (1.7-9.3); PLATELET COUNT 233 K/mm3 (130-400); RED BLOOD COUNT 3.69 M/mm3 (4.20-5.60)
[2019-04-03 22:14] LABS: ALBUMIN 4.2 gm/dL (3.5-5.0); BILIRUBIN,TOTAL 2.1 mg/dL (0.0-1.0); CALCIUM 9.1 mg/dL (8.4-10.2); CREATININE, serum 2.64 (0.66-1.25); POTASSIUM 4.5 mmol/L (3.4-5.0); TOTAL PROTEIN 7.9 gm/dL (6.4-8.2)
[2019-04-03 22:25] LABS: TROPONIN-I 0.023 ng/mL (0.000-0.035)
[2019-04-03 23:18] LABS: COLLECTION METHOD CLEAN CATCH
--- NOTE | 2019-04-03 23:35 | NUR ---
Patient arrived, accompanied by JARED Sullivan. Patient ambulated from ED bed to ICU bed, no issues to report. Will assume care of patient at this time.
[2019-04-03 23:53] LABS: MUCOUS Present /lpf; PH 6 (5-8); URINE APPEARANCE Cloudy; URINE BACTERIA Rare /hpf; URINE BILIRUBIN Negative (NEGATIVE); URINE BLOOD 1+ (NEGATIVE); URINE COLOR Yellow; URINE GLUCOSE Negative (NEGATIVE); URINE KETONE Negative (NEGATIVE); URINE LEUKOCYTE ESTERASE 3+ (NEGATIVE); URINE NITRATE Negative (NEGATIVE); URINE PROTEIN(semi-quant) Negative (NEGATIVE); URINE UROBILINOGEN Negative (NEGATIVE)
[2019-04-04 00:11] VITALS: BP 107/76; PULSE 73; TEMP 98.5
--- NOTE | 2019-04-04 00:30 | NUR ---
Patient unreliable historian, unable to obtain medication list or reconciliation. Patient unsure of what he takes, set up by home health nurse weekly.
[2019-04-04] MEDS ORDERED: ISORDIL 20MG20 M1 PO (03:25)
[2019-04-04] MEDS ORDERED: ZANTAC 150MG T150 MG PO (03:25)
[2019-04-04] MEDS ORDERED: DULCOLAX STOOL100 MG PO (03:25)
[2019-04-04] MEDS ORDERED: ASPIRIN 81M81 MG/TA2 PO (03:26)
[2019-04-04] MEDS ORDERED: ZIAC 10/6.25M1 UDTAB PO (03:26)
[2019-04-04] MEDS ORDERED: FLOMAX 0.40.4 MG/CAP PO (03:27)
[2019-04-04] MEDS ORDERED: DEMADEX 20MG20 M1 PO (03:27)
[2019-04-04] MEDS ORDERED: PRIL40 PO (03:27)
[2019-04-04] MEDS ORDERED: NEURONTIN300 MG/CAP PO (03:28)
[2019-04-04 04:00] VITALS: BP 139/84; PULSE 69; TEMP 98
[2019-04-04 05:00] LABS: BASO % 0.7 % (0.0-2.0); EOS # 0.4 (0.0-0.7); EOS % 9.9 % (0-4.0); GRAN # 2.6 (1.4-6.5); GRAN % 60.6 % (42.2-75.2); LYMPH # 0.9 (1.2-3.4); LYMPH % 20.9 % (20.0-51.0); MEAN CELL VOLUME 80 fl (80.0-100.0); MEAN CORPUSCULAR HGB CONC 35 g/dl (33.0-37.0); MEAN PLATELET VOLUME 10.7 fl (7.4-10.4); MONO # 0.3 (0.1-0.6); MONO % 7.7 % (1.7-9.3); PLATELET COUNT 193 K/mm3 (130-400); RED BLOOD COUNT 3.41 M/mm3 (4.20-5.60); REDCELL DISTRIBUTION WIDTH-CV 20.2 % (11.5-14.5)
[2019-04-04 05:02] LABS: HEMATOCRIT 27.1 % (42.0-52.0); HEMOGLOBIN 9.6 g/dl (13.5-18.0); MEAN CORPUSCULAR HEMOGLOBIN 28 pg (27.0-31.0)
[2019-04-04 05:12] LABS: CALCIUM 8.3 mg/dL (8.4-10.2); CREATININE, serum 2.02 (0.66-1.25); MAGNESIUM 1.8 mg/dL (1.6-2.3)
[2019-04-04 08:00] VITALS: BP 121/75; PULSE 80; TEMP 97.9
--- NOTE | 2019-04-04 08:00 | NUR ---
Shift assessment complete at this time. Plan of care reviewed at bedside with patient. Additional time taken to address any other needs or concerns. Vitals stable at this time. Denies pain or any other discomfort. Bed in low position, call light within reach. Will continue to monitor.
[2019-04-04 09:02] LABS: CREATININE, serum 1.84 (0.66-1.25)
[2019-04-04 09:09] LABS: FRACTIONAL EXCRETION OF NA+ 2.1 %
[2019-04-04 12:00] VITALS: BP 106/63; PULSE 84; TEMP 97.9
--- NOTE | 2019-04-04 14:00 | NUR ---
Arrived to the room at this time. No pain or needs reported. No syncope with ambulation. The patient was oriented to the room and needs.
[2019-04-04 17:16] VITALS: BP 115/67; PULSE 68; TEMP 97.5
--- NOTE | 2019-04-04 19:46 | NUR ---
No change throughout the shift. Report given to JARED Fleming to resume care.
[2019-04-04 19:47] VITALS: BP 142/82; PULSE 83; TEMP 97.7
--- NOTE | 2019-04-04 20:30 | NUR ---
Shift assessment complete. Pt resting in bed, awake, a&o, cooperative c cares. Pt denies pain or any other c/o at this time. IV s complication. Tele in place. Pt denies needs. Call light in reach, bed alarm on. Will continue to monitor.
[2019-04-05] VITALS (10 sets, daily range): BP systolic 126–165; BP diastolic 66–105; PULSE 70–87; TEMP 97.6–98.4
--- NOTE | 2019-04-05 06:20 | NUR ---
Pt resting in bed, condition unchanged. Pt has been up to void several times tonight but has otherwise rested well. Continues to deny pain, SOB or any other c/o. Denies needs at this time. Call light in reach, bed alarm on.
[2019-04-05 07:16] LABS: EOS # 0.5 (0.0-0.7); EOS % 13.5 % (0-4.0); GRAN # 2.4 (1.4-6.5); GRAN % 59.9 % (42.2-75.2); HEMOGLOBIN 10.4 g/dl (13.5-18.0); LYMPH # 0.7 (1.2-3.4); LYMPH % 16.7 % (20.0-51.0); MEAN CELL VOLUME 81 fl (80.0-100.0); MEAN CORPUSCULAR HEMOGLOBIN 28 pg (27.0-31.0); MEAN CORPUSCULAR HGB CONC 35 g/dl (33.0-37.0); MEAN PLATELET VOLUME 10.4 fl (7.4-10.4); MONO # 0.3 (0.1-0.6); MONO % 8.2 % (1.7-9.3); PLATELET COUNT 190 K/mm3 (130-400); REDCELL DISTRIBUTION WIDTH-CV 20.1 % (11.5-14.5)
[2019-04-05 07:25] LABS: HEMATOCRIT 30.1 % (42.0-52.0)
[2019-04-05 07:28] LABS: CALCIUM 8.8 mg/dL (8.4-10.2); CREATININE, serum 1.49 (0.66-1.25); MAGNESIUM 1.9 mg/dL (1.6-2.3); POTASSIUM 4.6 mmol/L (3.4-5.0)
--- NOTE | 2019-04-05 09:00 | NUR ---
Initial assessment completed, no pain or needs reported. The patient is alert and oriented, minimal assistance with ambulation, but needs assistance ordering meals and with hygiene. The call light is in place.
--- NOTE | 2019-04-05 19:37 | NUR ---
No change throughout the day. The IV site was changed to the right forearm. Rocephin given as scheduled. Report given to JARED Fleming.
--- NOTE | 2019-04-05 20:27 | NUR ---
Shift assessment complete. Pt resting in bedside recliner, awake, a&o, cooperative c cares. Pt denies pain or any other c/o at this time. INT patent. Tele in place. Pt denies needs. Call light in reach, chair alarm on. Will continue to monitor.
[2019-04-06 04:00] VITALS: BP 143/76; PULSE 77; TEMP 97.7
[2019-04-06 06:23] LABS: MEAN CELL VOLUME 81 fl (80.0-100.0); MEAN CORPUSCULAR HGB CONC 34 g/dl (33.0-37.0); MEAN PLATELET VOLUME 10.3 fl (7.4-10.4); PLATELET COUNT 183 K/mm3 (130-400); RED BLOOD COUNT 3.52 M/mm3 (4.20-5.60); REDCELL DISTRIBUTION WIDTH-CV 20.1 % (11.5-14.5)
[2019-04-06 06:28] LABS: HEMATOCRIT 28.6 % (42.0-52.0); HEMOGLOBIN 9.8 g/dl (13.5-18.0); MEAN CORPUSCULAR HEMOGLOBIN 28 pg (27.0-31.0)
[2019-04-06 06:33] LABS: CALCIUM 8.7 mg/dL (8.4-10.2); CREATININE, serum 1.29 (0.66-1.25); MAGNESIUM 1.9 mg/dL (1.6-2.3); POTASSIUM 4.3 mmol/L (3.4-5.0)
[2019-04-06 06:54] LABS: ANISOCYTOSIS 2+; BASOPHIL 2 % (0-2); EOSINOPHIL 14 % (0-4); LYMPHOCYTE 22 % (20.0-51.0); NEUTROPHILS 58 % (42.0-75.2); PLATELET ESTIMATE NORMAL (NORMAL)
[2019-04-06 07:31] VITALS: BP 141/89; PULSE 71; TEMP 98.1
--- NOTE | 2019-04-06 07:46 | NUR ---
Assessment completed, alert/oriented, vital signs stable, denies pain or discomfort, stated he is "feeling better and wants to go home today", heart RRR/ distal pulses are palpable, lungs CTA/ no resp.difficulty noted, patient is sitting up in the chair / has been ambulating with stand by assist only / working with PT/OT who recommend mcc once discharged, he is eating breakfast at this time and denies other needs
--- NOTE | 2019-04-06 10:12 | NUR ---
SW attended clinical rounds to discuss discharge planning. Doctor reports patient might benefit from a skilled stay. Patient is agreeable but would prefer not to go to [facility]. Patient prefers [facility] and [facility]. Patient will be seen by PT and OT again to see if patient needs SNF. SW then met with patient about discharge plan. Patient lives in [facility]. Patient's PCP is Dr Ayala and he obtains prescriptions from [facility]. Patient reports he does not use any DME and he has a home health nurse for medication management. Patient does not remember which home health agency his nurse is with. Patient does not have a DPOA and is not interested in obtaining one. Patient signed choice form for [facility] and [facility]. SW faxed referral to both facilities.
--- NOTE | 2019-04-06 11:04 | NUR ---
SW spoke with PT and OT. Both do not recommend SNF or Home Health. Patient will discharge home today (04/06).
[2019-04-06 11:24] VITALS: BP 138/96; PULSE 73; TEMP 97.8
--- NOTE | 2019-04-06 11:24 | NUR ---
Initial visit; Patient thanked Boarder Machine for looking in on him and offering God's blessings.
[2019-04-06] MEDS ORDERED: OMNICEF 300MG300 MG PO (15:53)
[2019-04-06] MEDS ORDERED: ZEBETA10 MG PO (15:54)
[2019-04-06] MEDS ORDERED: DEMADEX 20MG20 M1 PO (15:55)
[2019-04-06 15:59] VITALS: BP 149/79; PULSE 71; TEMP 97.9
--- NOTE | 2019-04-06 17:09 | NUR ---
Patient will discharge home today (04/06). FRANK informed that patient does not have transportation home. FRANK contacted patient's insurance to arrange transportation. Trip # is [id number]. FRANK informed patient's nurse.
--- NOTE | 2019-04-06 18:19 | NUR ---
discharge orders discussed with patient, instructed to take medications as prescribed, follow up with Cardiology and PCP as we have scheduled for him, removed IV and tele, social work has set up transportation for him to get home, will escort him out the door when his ride arrives
--- NOTE | 2019-04-06 19:30 | NUR ---
Taxi service arrived et pt escorted out by RN.
== END 2019-04-06 19:30 | disposition home health service (06) | DRG 683 ==
LOC: COL.ER 21:40 → ICU 23:07 → MEDICAL 23:07
PROVIDERS: Emergency Medicine; Nurse Practitioner Family; ADMIT Family Medicine
DX: N17.9 Acute kidney failure, unspecified (principal); I13.0 Hypertensive heart and chronic kidney disease with heart failure and stage 1 through stage 4 chronic kidney disease, or unspecified chronic kidney disease; I50.22 Chronic systolic (congestive) heart failure; N39.0 Urinary tract infection, site not specified; I95.89 Other hypotension; N18.9 Chronic kidney disease, unspecified; F17.210 Nicotine dependence, cigarettes, uncomplicated; I25.10 Atherosclerotic heart disease of native coronary artery without angina pectoris; Z66 Do not resuscitate; I25.2 Old myocardial infarction; Z95.810 Presence of automatic (implantable) cardiac defibrillator; J44.9 Chronic obstructive pulmonary disease, unspecified; Z86.718 Personal history of other venous thrombosis and embolism; K21.9 Gastro-esophageal reflux disease without esophagitis; N40.0 Benign prostatic hyperplasia without lower urinary tract symptoms; D53.9 Nutritional anemia, unspecified; K80.20 Calculus of gallbladder without cholecystitis without obstruction; I69.328 Other speech and language deficits following cerebral infarction
CPT/HCPCS: 99222-AI; 99233-AI; 99239; A4216; J0696; J1644; J2185; J7030

== ENCOUNTER 2019-04-07 08:15 | Outpatient (RCR) | payer MEDICAID ==
[~2019-04-07 08:15] MED LIST changes: +DULCOLAX STOOL100 MG PO; +ISORDIL 20MG20 M1 PO; +NEURONTIN300 MG/CAP PO; +OMNICEF 300MG300 MG PO; +ZEBETA10 MG PO
[2019-05-08] MEDS ORDERED: LASIX 20MG TABL20 MG PO (10:36)
[2019-05-08] MEDS ORDERED: COLACE 100100 MG/CAP PO (10:37)
[2019-05-08] MEDS ORDERED: KLOR-CON20 MEQ PO (10:38)
[2019-05-08] MEDS ORDERED: K-DUR20 MEQ PO (15:55)
[2019-05-10] MEDS ORDERED: DEMADEX 20MG20 M1 PO (11:19)
[2019-05-11] MEDS ORDERED: FERRO-TIME325 MG PO (13:55)
[2019-05-11] MEDS ORDERED: ENTRESTO 24 MG1 EACH PO (13:56)
[2019-05-11] MEDS ORDERED: ELIQUIS 5MG PO (13:56)
[2019-05-11] MEDS ORDERED: ASPIRIN E.C. 8181 MG PO (13:57)
== END 2019-05-17 10:29 | disposition home or self-care (01) ==
LOC: MKS.ESL.PT 08:15
DX: M54.12 Radiculopathy, cervical region (principal)

== ENCOUNTER 2019-04-17 10:43 | Emergency (ER) | payer MEDICAID ==
[~2019-04-17] VITALS: Ht 175.3 cm; Wt 68.2 kg
[2019-04-17 10:45] VITALS: TEMP 97.6
[2019-04-17 11:03] LABS: PROTHROMBIN TIME 11.8 SECONDS (9.7-12.8)
[2019-04-17 11:06] LABS: BASO % 0.8 % (0.0-2.0); EOS # 0.5 (0.0-0.7); EOS % 10.4 % (0-4.0); GRAN # 2.8 (1.4-6.5); GRAN % 57.9 % (42.2-75.2); HEMOGLOBIN 10.3 g/dl (13.5-18.0); LYMPH # 1.1 (1.2-3.4); LYMPH % 21.5 % (20.0-51.0); MEAN CELL VOLUME 81 fl (80.0-100.0); MEAN CORPUSCULAR HEMOGLOBIN 29 pg (27.0-31.0); MEAN CORPUSCULAR HGB CONC 35 g/dl (33.0-37.0); MEAN PLATELET VOLUME 10.5 fl (7.4-10.4); MONO # 0.4 (0.1-0.6); PLATELET COUNT 188 K/mm3 (130-400); RED BLOOD COUNT 3.61 M/mm3 (4.20-5.60); REDCELL DISTRIBUTION WIDTH-CV 20.6 % (11.5-14.5)
[2019-04-17 11:08] LABS: ALBUMIN 3.9 gm/dL (3.5-5.0); BILIRUBIN,TOTAL 1.9 mg/dL (0.0-1.0); CALCIUM 8.5 mg/dL (8.4-10.2); CREATININE, serum 1.47 (0.66-1.25); POTASSIUM 4.4 mmol/L (3.4-5.0); TOTAL PROTEIN 7.5 gm/dL (6.4-8.2)
[2019-04-17 11:14] LABS: HEMATOCRIT 29.1 % (42.0-52.0)
[2019-04-17 11:20] LABS: TROPONIN-I 0.019 ng/mL (0.000-0.035)
[2019-04-17 14:51] VITALS: BP 162/94; PULSE 73
== END 2019-04-17 14:52 | disposition home or self-care (01) ==
LOC: COL.ER 10:43
PROVIDERS: Emergency Medicine
DX: R07.89 Other chest pain (principal); I50.9 Heart failure, unspecified; I25.10 Atherosclerotic heart disease of native coronary artery without angina pectoris; F17.210 Nicotine dependence, cigarettes, uncomplicated; Z95.0 Presence of cardiac pacemaker; Z86.718 Personal history of other venous thrombosis and embolism; Z79.82 Long term (current) use of aspirin
CPT/HCPCS: J3010

== ENCOUNTER → 2019-05-27 | Outpatient (CLI) | payer MEDICAID ==
[~2019-05-27] MED LIST changes: +ELIQUIS 5MG PO; +FERRO-TIME325 MG PO; +KLOR-CON20 MEQ PO; +LASIX 20MG TABL20 MG PO
== END ==
LOC: COL.RAD 08:56
DX: Z01.812 Encounter for preprocedural laboratory examination (principal); K80.70 Calculus of gallbladder and bile duct without cholecystitis without obstruction; R16.0 Hepatomegaly, not elsewhere classified; E80.6 Other disorders of bilirubin metabolism
CPT/HCPCS: Q9967

== ENCOUNTER → 2019-07-01 | Outpatient (CLI) | payer MEDICAID | LOC: COL.RAD 14:05 | DX: R79.89 Other specified abnormal findings of blood chemistry (principal) | CPT/HCPCS: Q9967 ==

== ENCOUNTER → 2019-07-05 | Outpatient (CLI) | payer MEDICAID ==
[2019-07-05 11:29] LABS: CALCIUM 8.2 mg/dL (8.4-10.2); CREATININE, serum 1.63 (0.66-1.25); POTASSIUM 4.3 mmol/L (3.4-5.0)
== END ==
LOC: COL.LAB 10:58
PROVIDERS: Nurse Practitioner
DX: Z01.89 Encounter for other specified special examinations (principal)

== ENCOUNTER 2019-08-02 14:31 | Emergency (ER) | payer MEDICAID ==
[~2019-08-02] VITALS: Ht 177.8 cm; Wt 70.5 kg
[2019-08-02 14:34] VITALS: TEMP 98.3
[2019-08-02 15:49] LABS: COLLECTION METHOD CLEAN CATCH
[2019-08-02 16:05] LABS: ALANINE AMINOTRANSFERASE 7 U/L (21-72); ALBUMIN 4.4 gm/dL (3.5-5.0); ALKALINE PHOSPHATASE 61 U/L (50-136); ANION GAP 10 mmol/L (7-16); AST,SGOT 24 U/L (15-37); BILIRUBIN,TOTAL 3.8 mg/dL (0.0-1.0); BLOOD UREA NITROGEN 31 mg/dL (9-20); CALCIUM 9.1 mg/dL (8.4-10.2); CARBON DIOXIDE 27 mmol/L (22-30); CHLORIDE 105 mmol/L (98-107); CREATININE, serum 2.03 (0.66-1.25); EOS # 0.4 (0.0-0.7); GLUCOSE 97 mg/dL (74-106); GRAN # 2.7 (1.4-6.5); GRAN % 64.3 % (42.2-75.2); HEMOGLOBIN 10.7 g/dl (13.5-18.0); LYMPH # 0.7 (1.2-3.4); LYMPH % 15.8 % (20.0-51.0); MEAN CELL VOLUME 80 fl (80.0-100.0); MEAN CORPUSCULAR HEMOGLOBIN 27 pg (27.0-31.0); MEAN CORPUSCULAR HGB CONC 35 g/dl (33.0-37.0); MEAN PLATELET VOLUME 10.3 fl (7.4-10.4); MONO # 0.4 (0.1-0.6); MONO % 8.7 % (1.7-9.3); PLATELET COUNT 214 K/mm3 (130-400); POTASSIUM 3.8 mmol/L (3.4-5.0); REDCELL DISTRIBUTION WIDTH-CV 22.5 % (11.5-14.5); SODIUM 142 mmol/L (137-145); TOTAL PROTEIN 8.4 gm/dL (6.4-8.2)
[2019-08-02 16:06] LABS: C-REACTIVE PROTEIN < 0.5 mg/dL (0.0-0.9)
[2019-08-02 16:10] LABS: MUCOUS Present /lpf; PH 6 (5-8); URINE APPEARANCE Cloudy; URINE BACTERIA Many /hpf; URINE BILIRUBIN Negative (NEGATIVE); URINE BLOOD Negative (NEGATIVE); URINE COLOR Yellow; URINE GLUCOSE Negative (NEGATIVE); URINE KETONE Negative (NEGATIVE); URINE LEUKOCYTE ESTERASE 3+ (NEGATIVE); URINE NITRATE Positive (NEGATIVE); URINE PROTEIN(semi-quant) 1+ (NEGATIVE); URINE UROBILINOGEN Negative (NEGATIVE)
[2019-08-02 16:14] LABS: TROPONIN-I 0.018 ng/mL (0.000-0.035)
[2019-08-02 18:43] VITALS: BP 114/81; PULSE 70
== END 2019-08-02 18:47 | disposition short-term general hospital (02) ==
LOC: COL.ER 14:31
PROVIDERS: Emergency Medicine
DX: N39.0 Urinary tract infection, site not specified (principal); N18.9 Chronic kidney disease, unspecified; R06.00 Dyspnea, unspecified; I13.0 Hypertensive heart and chronic kidney disease with heart failure and stage 1 through stage 4 chronic kidney disease, or unspecified chronic kidney disease; I50.9 Heart failure, unspecified; I25.10 Atherosclerotic heart disease of native coronary artery without angina pectoris; J44.9 Chronic obstructive pulmonary disease, unspecified; F17.210 Nicotine dependence, cigarettes, uncomplicated; Z86.73 Personal history of transient ischemic attack (TIA), and cerebral infarction without residual deficits; Z86.718 Personal history of other venous thrombosis and embolism; Z79.01 Long term (current) use of anticoagulants; Z79.82 Long term (current) use of aspirin
CPT/HCPCS: J0696; J7030; J7040; J7512

== ENCOUNTER 2019-08-08 11:13 | Emergency (ER) | payer MEDICAID ==
[~2019-08-08] VITALS: Ht 188 cm; Wt 75.0 kg
[2019-08-08 11:18] VITALS: TEMP 98.2
[2019-08-08 11:40] LABS: BASO # 0.1 (0.0-0.2); BASO % 1.2 % (0.0-2.0); EOS # 0.5 (0.0-0.7); EOS % 12.3 % (0-4.0); GRAN # 2.3 (1.4-6.5); GRAN % 53.6 % (42.2-75.2); LYMPH # 0.9 (1.2-3.4); LYMPH % 22.3 % (20.0-51.0); MEAN CELL VOLUME 79 fl (80.0-100.0); MEAN CORPUSCULAR HEMOGLOBIN 28 pg (27.0-31.0); MEAN CORPUSCULAR HGB CONC 35 g/dl (33.0-37.0); MEAN PLATELET VOLUME 10.6 fl (7.4-10.4); MONO # 0.4 (0.1-0.6); MONO % 10.4 % (1.7-9.3); PLATELET COUNT 208 K/mm3 (130-400); RED BLOOD COUNT 3.98 M/mm3 (4.20-5.60); REDCELL DISTRIBUTION WIDTH-CV 22.3 % (11.5-14.5)
[2019-08-08 11:41] LABS: HEMATOCRIT 31.6 % (42.0-52.0)
[2019-08-08 11:55] LABS: ALANINE AMINOTRANSFERASE 19 U/L (21-72); ALBUMIN 4.2 gm/dL (3.5-5.0); ALKALINE PHOSPHATASE 61 U/L (50-136); ANION GAP 9 mmol/L (7-16); AST,SGOT 31 U/L (15-37); BILIRUBIN,TOTAL 2.5 mg/dL (0.0-1.0); BLOOD UREA NITROGEN 31 mg/dL (9-20); CALCIUM 8.8 mg/dL (8.4-10.2); CARBON DIOXIDE 29 mmol/L (22-30); CHLORIDE 105 mmol/L (98-107); CREATININE, serum 1.42 (0.66-1.25); GLUCOSE 97 mg/dL (74-106); LIPASE 87 U/L (23-300); POTASSIUM 3.6 mmol/L (3.4-5.0); SODIUM 143 mmol/L (137-145)
[2019-08-08 11:59] LABS: C-REACTIVE PROTEIN < 0.5 mg/dL (0.0-0.9)
[2019-08-08 12:04] LABS: TROPONIN-I 0.021 ng/mL (0.000-0.035)
[2019-08-08 12:26] LABS: COLLECTION METHOD CLEAN CATCH
[2019-08-08 12:36] LABS: MUCOUS Present /lpf; PH 7 (5-8); SQUAMOUS EPITHELIAL 0-2 /hpf; URINE APPEARANCE Clear; URINE BACTERIA None Seen /hpf; URINE BILIRUBIN Negative (NEGATIVE); URINE BLOOD Negative (NEGATIVE); URINE COLOR Yellow; URINE GLUCOSE Negative (NEGATIVE); URINE KETONE Negative (NEGATIVE); URINE LEUKOCYTE ESTERASE Negative (NEGATIVE); URINE NITRATE Negative (NEGATIVE); URINE PROTEIN(semi-quant) Negative (NEGATIVE); URINE RBC 0-2 /hpf; URINE UROBILINOGEN Negative (NEGATIVE)
[2019-08-08] MEDS ORDERED: NORCO 325 MG-51 TAB PO (13:04)
[2019-08-08] MEDS ORDERED: ZOFRAN ODT4 MG PO (13:04)
[2019-08-08 13:33] VITALS: BP 95/66; PULSE 74
== END 2019-08-08 13:17 | disposition home or self-care (01) ==
LOC: COL.ER 11:13
PROVIDERS: Physician Assistant
DX: R10.10 Upper abdominal pain, unspecified (principal); I25.10 Atherosclerotic heart disease of native coronary artery without angina pectoris; I48.91 Unspecified atrial fibrillation; I11.0 Hypertensive heart disease with heart failure; I50.9 Heart failure, unspecified; K21.9 Gastro-esophageal reflux disease without esophagitis; E78.5 Hyperlipidemia, unspecified; J44.9 Chronic obstructive pulmonary disease, unspecified; F17.210 Nicotine dependence, cigarettes, uncomplicated; Z86.718 Personal history of other venous thrombosis and embolism; Z95.0 Presence of cardiac pacemaker; Z79.02 Long term (current) use of antithrombotics/antiplatelets; Z79.01 Long term (current) use of anticoagulants; Z79.82 Long term (current) use of aspirin
CPT/HCPCS: J1170; J2405; J7030

== ENCOUNTER 2019-08-27 12:49 | Emergency (ER) | payer MEDICAID ==
[~2019-08-27] VITALS: Ht 188 cm; Wt 79.5 kg
[~2019-08-27 12:49] MED LIST changes: +ZOFRAN ODT4 MG PO
[2019-08-27 12:50] VITALS: TEMP 97.5
[2019-08-27 13:18] LABS: COLLECTION METHOD CLEAN CATCH
[2019-08-27 13:42] LABS: MUCOUS Present /lpf; PH 7 (5-8); SQUAMOUS EPITHELIAL 0-2 /hpf; URINE APPEARANCE Hazy; URINE BACTERIA Occasional /hpf; URINE BILIRUBIN Negative (NEGATIVE); URINE BLOOD Negative (NEGATIVE); URINE COLOR Yellow; URINE GLUCOSE Negative (NEGATIVE); URINE KETONE Negative (NEGATIVE); URINE LEUKOCYTE ESTERASE 3+ (NEGATIVE); URINE NITRATE Positive (NEGATIVE); URINE PROTEIN(semi-quant) Negative (NEGATIVE)
[2019-08-27 13:54] LABS: BASO # 0.1 (0.0-0.2); BASO % 1.3 % (0.0-2.0); EOS # 0.5 (0.0-0.7); EOS % 13.9 % (0-4.0); GRAN # 2.2 (1.4-6.5); GRAN % 56.2 % (42.2-75.2); HEMOGLOBIN 10.7 g/dl (13.5-18.0); LYMPH # 0.8 (1.2-3.4); LYMPH % 20.2 % (20.0-51.0); MEAN CELL VOLUME 81 fl (80.0-100.0); MEAN CORPUSCULAR HEMOGLOBIN 28 pg (27.0-31.0); MEAN CORPUSCULAR HGB CONC 35 g/dl (33.0-37.0); MEAN PLATELET VOLUME 10.3 fl (7.4-10.4); MONO # 0.3 (0.1-0.6); MONO % 8.1 % (1.7-9.3); PLATELET COUNT 195 K/mm3 (130-400); RED BLOOD COUNT 3.81 M/mm3 (4.20-5.60); REDCELL DISTRIBUTION WIDTH-CV 22.6 % (11.5-14.5)
[2019-08-27 13:55] LABS: HEMATOCRIT 30.9 % (42.0-52.0)
[2019-08-27 13:58] LABS: PROTHROMBIN TIME 11.2 SECONDS (9.7-12.8)
[2019-08-27 14:07] LABS: ALBUMIN 4.4 gm/dL (3.5-5.0); BILIRUBIN,TOTAL 3.2 mg/dL (0.0-1.0); CREATININE, serum 1.56 (0.66-1.25); POTASSIUM 4.4 mmol/L (3.4-5.0); TOTAL PROTEIN 8.4 gm/dL (6.4-8.2)
[2019-08-27] MEDS ORDERED: OMNICEF 300MG300 MG PO (14:33)
[2019-08-27 14:54] VITALS: BP 129/77; PULSE 59
== END 2019-08-27 15:15 | disposition home or self-care (01) ==
LOC: COL.ER 12:49
PROVIDERS: Family Medicine
DX: N39.0 Urinary tract infection, site not specified (principal); I48.91 Unspecified atrial fibrillation; J44.9 Chronic obstructive pulmonary disease, unspecified; N40.0 Benign prostatic hyperplasia without lower urinary tract symptoms; K21.9 Gastro-esophageal reflux disease without esophagitis; I10 Essential (primary) hypertension; F17.210 Nicotine dependence, cigarettes, uncomplicated; Z79.82 Long term (current) use of aspirin
CPT/HCPCS: J0696

== ENCOUNTER 2019-09-13 11:06 | Emergency (ER) | payer MEDICAID ==
[~2019-09-13] VITALS: Ht 172.7 cm; Wt 81.8 kg
[2019-09-13 11:07] VITALS: TEMP 98
[2019-09-13 11:31] LABS: COLLECTION METHOD CLEAN CATCH
[2019-09-13 11:48] LABS: PH 7 (5-8); SQUAMOUS EPITHELIAL 0-2 /hpf; URINE APPEARANCE Clear; URINE BACTERIA None Seen /hpf; URINE BILIRUBIN Negative (NEGATIVE); URINE BLOOD Negative (NEGATIVE); URINE COLOR Yellow; URINE GLUCOSE Negative (NEGATIVE); URINE KETONE Negative (NEGATIVE); URINE LEUKOCYTE ESTERASE Trace (NEGATIVE); URINE NITRATE Negative (NEGATIVE); URINE PROTEIN(semi-quant) Negative (NEGATIVE); URINE RBC 0-2 /hpf; URINE UROBILINOGEN Negative (NEGATIVE)
[2019-09-13 12:04] LABS: BASO % 0.9 % (0.0-2.0); EOS # 0.4 (0.0-0.7); GRAN % 67.3 % (42.2-75.2); LYMPH # 0.7 (1.2-3.4); LYMPH % 16.9 % (20.0-51.0); MEAN CELL VOLUME 81 fl (80.0-100.0); MEAN CORPUSCULAR HGB CONC 35 g/dl (33.0-37.0); MEAN PLATELET VOLUME 10.9 fl (7.4-10.4); MONO # 0.3 (0.1-0.6); MONO % 6.4 % (1.7-9.3); PLATELET COUNT 223 K/mm3 (130-400); RED BLOOD COUNT 3.35 M/mm3 (4.20-5.60); REDCELL DISTRIBUTION WIDTH-CV 21.1 % (11.5-14.5)
[2019-09-13 12:06] LABS: HEMATOCRIT 27.2 % (42.0-52.0); HEMOGLOBIN 9.4 g/dl (13.5-18.0); MEAN CORPUSCULAR HEMOGLOBIN 28 pg (27.0-31.0)
[2019-09-13 12:07] LABS: ALBUMIN 4.1 gm/dL (3.5-5.0); BILIRUBIN,TOTAL 3.3 mg/dL (0.0-1.0); CALCIUM 8.7 mg/dL (8.4-10.2); CREATININE, serum 1.73 (0.66-1.25); POTASSIUM 3.6 mmol/L (3.4-5.0); TOTAL PROTEIN 7.9 gm/dL (6.4-8.2)
[2019-09-13] MEDS ORDERED: CEPHALEXIN500 M1 PO (13:10)
[2019-09-13 14:20] VITALS: BP 128/87; PULSE 87
--- NOTE | 2019-09-13 16:47 | NUR ---
MARIELY jaramillo met with the patient, the patient is on CCT. MARIELY jaramillo asked the patient about winter gear, food and his job. The patient reports he has lots of coats and has plenty of food. The patient reports he still works on Saturdays at [employer]. MARIELY jaramillo provided a taxi voucher for the patient. MARIELY jaramillo collaborated the above information with the patient's nurse.
== END 2019-09-13 14:32 | disposition home or self-care (01) ==
LOC: COL.ER 11:06
PROVIDERS: Family Medicine
DX: N39.0 Urinary tract infection, site not specified (principal); I11.0 Hypertensive heart disease with heart failure; I50.9 Heart failure, unspecified
CPT/HCPCS: J7030

== ENCOUNTER 2020-05-09 07:17 | Inpatient (IN) | payer MEDICAID ==
[~2020-05-09] VITALS: Ht 177.8 cm; Wt 60.3 kg
[~2020-05-09 07:17] MED LIST changes: +DEMADEX10 MG PO; +NYSTATIN OR100 MU/ML PO; +ULTRAM 50MG TAB50 MG PO; +ZEBETA 5MG5 MG PO
[2020-05-09 08:07] LABS: BASO # 0.1 (0.0-0.2); BASO % 0.8 % (0.0-2.0); EOS # 0.2 (0.0-0.7); EOS % 2.4 % (0-4.0); GRAN # 6.5 (1.4-6.5); GRAN % 77.1 % (42.2-75.2); LYMPH # 0.9 (1.2-3.4); MEAN CELL VOLUME 78 fl (80.0-100.0); MEAN CORPUSCULAR HGB CONC 32 g/dl (33.0-37.0); MEAN PLATELET VOLUME 10.5 fl (7.4-10.4); MONO # 0.8 (0.1-0.6); MONO % 9.3 % (1.7-9.3); PLATELET COUNT 299 K/mm3 (130-400); RED BLOOD COUNT 3.89 M/mm3 (4.20-5.60); REDCELL DISTRIBUTION WIDTH-CV 22.5 % (11.5-14.5)
[2020-05-09 08:08] LABS: HEMATOCRIT 30.3 % (42.0-52.0); HEMOGLOBIN 9.7 g/dl (13.5-18.0); MEAN CORPUSCULAR HEMOGLOBIN 25 pg (27.0-31.0)
[2020-05-09 08:12] LABS: ALBUMIN 3.5 gm/dL (3.5-5.0); BILIRUBIN,TOTAL 3.2 mg/dL (0.0-1.0); CALCIUM 8.3 mg/dL (8.4-10.2); CREATININE, serum 1.62 (0.66-1.25); POTASSIUM 4.4 mmol/L (3.4-5.0); TOTAL PROTEIN 7.7 gm/dL (6.4-8.2)
[2020-05-09 08:16] LABS: INR 1.6 (0.8-3.0); PROTHROMBIN TIME 18.4 SECONDS (9.7-12.8)
[2020-05-09 08:23] LABS: TROPONIN-I 0.031 ng/mL (0.000-0.035)
[2020-05-09] MEDS ORDERED: FERROUS SU325 MG/TAB PO (12:00)
[2020-05-09] MEDS ORDERED: PEPCID 20MG TAB20 MG PO (12:04)
[2020-05-09] MEDS ORDERED: DOXYCYCLINE HY100 MG PO (12:14)
[2020-05-09 12:18] VITALS: BP 131/84; PULSE 62; TEMP 98.5
[2020-05-09 12:34] VITALS: BP 131/84; PULSE 62; TEMP 98.5
--- NOTE | 2020-05-09 13:29 | NUR ---
Pt up to room 309 from ER. Pt assisted to bed from stretcher. Pt is A&O. Assisted to bathroom with walker. Pt denies dizziness. Pt on 2L NC, labored breathing, states he has some SOB. Pt on tele. BS+, pt states he had a BM when assisted to bathroom. RLL coarse and exp wheezes, RUL exp wheezes, Lt lung rodrigez clear. Pt denies chest pain, N/V/D, abdominal pain. LAC INT IV that flushes w/o complications. Rt foot/ankle edema 2+, Lt foot/ankle edema 1+. Pulses strong bilaterally. No further needs.
[2020-05-09 16:53] VITALS: BP 123/79; PULSE 84; TEMP 97.6
--- NOTE | 2020-05-09 18:21 | NUR ---
Med records obtained from PCP office, med rec completed per PCP list, pt poor historian per history and unsure of what medications he is on. ABBEY Lemus notified of med records being faxed over and on chart. No further needs at this time.
[2020-05-09 19:25] VITALS: BP 138/88; PULSE 91; TEMP 97.4
--- NOTE | 2020-05-09 19:26 | NUR ---
Initial shift assessment done- pleasant, Alert/oriented, at times difficult to understand due to muffled speech, o2 at 2L/nc, o2 sats 91% at this time. Denies pain. Will get Lasix IV tonight- using urinal--did void 200cc- will send down to lab.
[2020-05-09 20:32] LABS: COLLECTION METHOD CLEAN CATCH
[2020-05-09 20:42] LABS: MUCOUS Present /lpf; PH 5 (5-8); SQUAMOUS EPITHELIAL 0-2 /hpf; URINE APPEARANCE Clear; URINE BACTERIA None Seen /hpf; URINE BILIRUBIN Negative (NEGATIVE); URINE BLOOD Negative (NEGATIVE); URINE COLOR Yellow; URINE GLUCOSE Negative (NEGATIVE); URINE KETONE Negative (NEGATIVE); URINE LEUKOCYTE ESTERASE Negative (NEGATIVE); URINE NITRATE Negative (NEGATIVE); URINE PROTEIN(semi-quant) Negative (NEGATIVE); URINE RBC 0-2 /hpf
[2020-05-10] VITALS (8 sets, daily range): BP systolic 103–139; BP diastolic 53–86; PULSE 74–90; TEMP 97.9–98.6
[2020-05-10 06:11] LABS: BASO % 0.5 % (0.0-2.0); EOS # 0.1 (0.0-0.7); EOS % 2.1 % (0-4.0); GRAN % 76.3 % (42.2-75.2); LYMPH # 0.7 (1.2-3.4); LYMPH % 10.4 % (20.0-51.0); MEAN CELL VOLUME 77 fl (80.0-100.0); MEAN CORPUSCULAR HGB CONC 33 g/dl (33.0-37.0); MONO # 0.7 (0.1-0.6); MONO % 10.4 % (1.7-9.3); PLATELET COUNT 246 K/mm3 (130-400); RED BLOOD COUNT 3.42 M/mm3 (4.20-5.60); REDCELL DISTRIBUTION WIDTH-CV 22.3 % (11.5-14.5)
[2020-05-10 06:13] LABS: HEMATOCRIT 26.3 % (42.0-52.0); HEMOGLOBIN 8.7 g/dl (13.5-18.0); MEAN CORPUSCULAR HEMOGLOBIN 25 pg (27.0-31.0)
[2020-05-10 06:22] LABS: ALBUMIN 2.9 gm/dL (3.5-5.0); BILIRUBIN,TOTAL 2.4 mg/dL (0.0-1.0); CALCIUM 7.9 mg/dL (8.4-10.2); CREATININE, serum 1.56 (0.66-1.25); MAGNESIUM 2.2 mg/dL (1.6-2.3); POTASSIUM 4.3 mmol/L (3.4-5.0); TOTAL PROTEIN 6.7 gm/dL (6.4-8.2)
--- NOTE | 2020-05-10 06:45 | NUR ---
Quiet night-- states he feels like he is berathing easier this morning. VSS.
--- NOTE | 2020-05-10 06:47 | NUR ---
850cc out of urine this shift-
--- NOTE | 2020-05-10 09:49 | NUR ---
First visit from the electric track switch maintainer. No needs right now.
--- NOTE | 2020-05-10 13:59 | NUR ---
Kettle Operator met with patient to discuss discharge planning. Patient states he lives in [place] at a halfway community. Patient reports he sees Dr. Ayala for primary care and obtains medications from [facility]. Patient denies any DME usage and states he is independent at home. Patient is currently on oxygen but states he does not use oxygen at home. Patient states he has no family, but his boss Stanton (ph#[phone]) is his emergency contact. FRANK contacted Lindsey, Eeg Technician at [facility] who confirmed patient is seen by Dr. Ayala. Lindsey reports patient has medication assistance from [facility]. Lindsey stated that patient used to receive services from [facility] but no longer qualifies. Lindsey advised that patient lives at the [facility]. Lindsey does not have any DPOA documents for patient. FRANK contacted Liseth at [facility] and faxed updates. Liseth advised they have Stanton listed as DPOA however they do not have copies of the documents. Liseth reports they visit patient once a week to set up his medications. FRANK contacted Stanton who advised he believes patient designated him as DPOA, however he has not seen this paperwork. Stanton advised he helps patient as patient does not have any local family. Stanton advised that patient states he has some family in [place] or [place] but has never shared any names or contact information with Stanton. FRANK contacted Beba yBnum (ph#[phone]), Garage Door Opener Installer at [place] and left a message. FRANK collaborated with ABBEY Lemus to order PT/OT. FRANK will continue to follow for discharge needs.
--- NOTE | 2020-05-10 15:35 | NUR ---
Pt assessment completed and charted, o2 2l. Pt was stating that he is having difficulty staying high up on bed and was comfortable lying flat. Let him change his position for some time and brought back to 30 degree bed position. I/V line flushed without complications. No N/V/D, pain, numbness, tingling at this time as per pt. Pt is hard to understand due to slurred speech. Meds provided as per MAR, breakfast and lunch tolerated well.
--- NOTE | 2020-05-10 18:21 | NUR ---
Pt rested, watching television. Give him drink and no further needs at this time.
--- NOTE | 2020-05-10 20:00 | NUR ---
Assessment complete. Resting in bed, watching television. Conversant. Intermittent confusion, states he is currently employed at [employer]. Denies pain/ discomfort. Requests matthew thomas. Denies other needs at this time.
[2020-05-11 04:18] VITALS: BP 137/83; PULSE 83; TEMP 97.8
[2020-05-11 09:03] LABS: CALCIUM 7.9 mg/dL (8.4-10.2); CREATININE, serum 1.65 (0.66-1.25); POTASSIUM 3.6 mmol/L (3.4-5.0)
[2020-05-11 09:24] VITALS: BP 123/71; PULSE 79; TEMP 97.6
[2020-05-11 13:27] VITALS: BP 115/68; PULSE 77; TEMP 97.7
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
[2020-05-11 16:00] VITALS: BP 110/69; PULSE 77; TEMP 98.2
[2020-05-11 19:03] VITALS: BP 131/85; PULSE 77; TEMP 97.4
--- NOTE | 2020-05-11 19:22 | NUR ---
Pt assessment completed, charted, alert and partially oriented, NC 2l oxygen. Meds provided as per MAR, breakfast, lunch provided tolerated well. I/V line flushed without complications. No N/V/D, pain, tingling, numbness, SOB as per pt. Pt walked well with PT down to the hallway. I/O maintained and had a good amount of urine output. No further needs at this time. Handover given to the JARED Glover.
--- NOTE | 2020-05-11 21:15 | NUR ---
Patient assessed at this time. Alert and oriented x 4, and and able to make needs known. Patient does call for assistance, but does get up quickly without always waiting for assistance. Denies having dizzyness at this time, but does have a history of dizzyness, and gait is not completely stable. High fall risk precautions in place, with bed alarm on. Education provided to patient, and voiced understanding. Denies having pain and discomfort at this time. Peripheral INT to left upper arm. Given IV Lasix and flushed. Site is without redness, warmth, swelling, and pain. Denies SOB and dyspnea. Continues on oxygen at 2 L/min via NC. LS CTA throughout, except coarse crackles in left lower lobe. Respirations even and unlabored. HRR. Telemetry in place: paced. Capillary refill less than 3 seconds. Non-tenting skin turgor. BSAx4. Abdomen soft and non-tender. Using bedside urinal. Urine clear and yellow. No edema. Voices no questions, needs, or concerns at this time. Resting in bed with call light within reach.
[2020-05-12] VITALS: BP 117/56; PULSE 62; TEMP 98.7
[2020-05-12 03:55] VITALS: BP 103/68; PULSE 78; TEMP 98.6
--- NOTE | 2020-05-12 05:33 | NUR ---
Patient has been resting in bed with call light within reach. Has denied having pain and discomfort. Using bedside urinal. Voices no questions, needs, or concerns at this time. Resting in bed with call light within reach. High fall risk precautions remain in place.
[2020-05-12 06:24] LABS: BASO # 0.1 (0.0-0.2); BASO % 1.3 % (0.0-2.0); EOS # 0.4 (0.0-0.7); EOS % 8.4 % (0-4.0); GRAN # 3.2 (1.4-6.5); GRAN % 68.7 % (42.2-75.2); LYMPH # 0.6 (1.2-3.4); LYMPH % 12.6 % (20.0-51.0); MEAN CELL VOLUME 76 fl (80.0-100.0); MEAN CORPUSCULAR HGB CONC 32 g/dl (33.0-37.0); MEAN PLATELET VOLUME 10.8 fl (7.4-10.4); MONO # 0.4 (0.1-0.6); MONO % 8.6 % (1.7-9.3); PLATELET COUNT 261 K/mm3 (130-400); RED BLOOD COUNT 3.54 M/mm3 (4.20-5.60); REDCELL DISTRIBUTION WIDTH-CV 21.8 % (11.5-14.5)
[2020-05-12 06:29] LABS: HEMATOCRIT 26.9 % (42.0-52.0); HEMOGLOBIN 8.7 g/dl (13.5-18.0); MEAN CORPUSCULAR HEMOGLOBIN 25 pg (27.0-31.0)
[2020-05-12 06:39] LABS: CALCIUM 7.7 mg/dL (8.4-10.2); CREATININE, serum 1.38 (0.66-1.25); POTASSIUM 3.4 mmol/L (3.4-5.0)
[2020-05-12 09:00] VITALS: BP 123/74; PULSE 75; TEMP 98.1
--- NOTE | 2020-05-12 09:29 | NUR ---
Patient is awake and alert in room. Sitting up in chair. Did request to get up and out of bed for breakfast as the bed was uncomfortable. Chair alarm is in place and activated. He is denying pain. Dr. Narayan was in to see patient and stated that he was able to discharge home but patient requests that he stay until tomorrow. Is currently requesting to have a shower and shave. Did receive IV lasix and there is a urinal available. He did try to notify Homecare of his discharge. Patient reached on-call line for the holiday. He did ask that I speak to the person on the phone who did notify me of this, I did let her know that I would call back. I did speak with the on-call line again who attempted to connect me with the nurse who was unavailable at this time. Message and my contact number was provided.
[2020-05-12 12:30] VITALS: BP 120/64; PULSE 72; TEMP 97.9
--- NOTE | 2020-05-12 15:12 | NUR ---
Network Specialist attended clinical rounds with the team. Patient may discharge tomorrow. FRANK followed up with patient who states he feels comfortable going home with his current supports. Patient did inquire about a ride home. FRANK advised patient Medicaid Transport could be arranged for patient at discharge. FRANK contacted patient's friend, Stanton to provide update. Stanton reports he will be out of town the next couple weeks but he states he has called patient to check on him. FRANK left messages for [place] at [facility]. FRANK also left a message at the [facility] office and faxed updates. FRANK also left a message for Beba, Production Technologist at [facility] to notify her that patient may discharge tomorrow. FRANK also faxed updates to [facility]. FRANK will continue to follow.
--- NOTE | 2020-05-12 16:23 | NUR ---
Harp Maker spoke with Mickey at [facility] who advised they would assist patient with his medications at discharge. SW observed today in rounds patient was not wearing oxygen. FRANK will continue to follow.
[2020-05-12 17:11] VITALS: BP 102/70; PULSE 78; TEMP 98.3
--- NOTE | 2020-05-12 18:47 | NUR ---
Report given to Belen COLEMAN.
--- NOTE | 2020-05-12 20:10 | NUR ---
Patient assessed at this time. Alert and oriented x 4, and able to make needs known. Denies having pain and discomfort at this time. INT to left upper arm flushed. Site is without redness, warmth, swelling, and pain. Denies having SOB and dyspnea. LS CTA. Respirations even and unlabored. On room air at this time. HRR. Telemetry in place: paced. Capillary refill less than 3 seconds. Non-tenting skin turgor. BSAx4. Abdomen soft and non-tender. Using urinal. Urine is deanna and clear. Denies having burning, pain, and discomfort with urination. No edema. Voices no questions, needs, or concerns at this time. Resting in recliner with call light within reach. High fall risk precautions in place due to history of dizzyness and impulsiveness/not wanting to wait for assistance. Chair alarm in place.
[2020-05-12 21:11] VITALS: BP 101/84; PULSE 78; TEMP 97.6
[2020-05-13 00:50] VITALS: BP 107/70; PULSE 76; TEMP 97.6
[2020-05-13 04:10] VITALS: BP 106/66; PULSE 78; TEMP 97.5
--- NOTE | 2020-05-13 05:10 | NUR ---
Patient has voiced no questions, needs, or concerns this shift. Denies having pain and discomfort. Resting in bed with call light within reach.
[2020-05-13 07:27] VITALS: BP 128/77; PULSE 78; TEMP 98.2
[2020-05-13 07:43] LABS: CALCIUM 7.8 mg/dL (8.4-10.2); CREATININE, serum 1.21 (0.66-1.25); POTASSIUM 3.5 mmol/L (3.4-5.0)
[2020-05-13] MEDS ORDERED: ELIQUIS 5MG PO (09:35)
[2020-05-13] MEDS ORDERED: DEMADEX 20MG20 M1 PO (09:35)
[2020-05-13 12:28] VITALS: BP 108/69; PULSE 74; TEMP 97.7
--- NOTE | 2020-05-13 13:53 | NUR ---
IV discontinued. He is discharging with [facility]. [facility]. Reel Worker provided ride voucher.
--- NOTE | 2020-05-16 09:47 | NUR ---
packing line worker spoke with Mickey at [facility] and confirmed that they received home health orders for patient and saw patient this last weekend.
== END 2020-05-13 13:55 | disposition hospice, home (50) | DRG 291 ==
LOC: COL.ER 07:17 → MEDICAL 08:07
PROVIDERS: Emergency Medicine; Hospitalist; Physician Assistant; ADMIT Internal Medicine
DX: I13.0 Hypertensive heart and chronic kidney disease with heart failure and stage 1 through stage 4 chronic kidney disease, or unspecified chronic kidney disease (principal); I50.23 Acute on chronic systolic (congestive) heart failure; J96.01 Acute respiratory failure with hypoxia; I42.8 Other cardiomyopathies; I25.10 Atherosclerotic heart disease of native coronary artery without angina pectoris; I48.91 Unspecified atrial fibrillation; D63.1 Anemia in chronic kidney disease; N18.3 Chronic kidney disease, stage 3 (moderate); J44.9 Chronic obstructive pulmonary disease, unspecified; K21.9 Gastro-esophageal reflux disease without esophagitis; N40.0 Benign prostatic hyperplasia without lower urinary tract symptoms; F17.210 Nicotine dependence, cigarettes, uncomplicated; Z91.11 Patient's noncompliance with dietary regimen; Z86.718 Personal history of other venous thrombosis and embolism; Z86.73 Personal history of transient ischemic attack (TIA), and cerebral infarction without residual deficits; Z90.49 Acquired absence of other specified parts of digestive tract; Z95.810 Presence of automatic (implantable) cardiac defibrillator
CPT/HCPCS: 99222-AI; 99231-AI; 99232-AI; 99239; J1644; J1940; J7030

== ENCOUNTER → 2020-06-18 | Outpatient (CLI) | payer MEDICAID ==
[~2020-06-18] MED LIST changes: +DOXYCYCLINE HY100 MG PO; +FERROUS SU325 MG/TAB PO; +PEPCID 20MG TAB20 MG PO
== END ==
LOC: ZCOL.LAB 15:37
DX: Z20.828 Contact with and (suspected) exposure to other viral communicable diseases (principal)

== ENCOUNTER → 2020-10-18 | Outpatient (CLI) | payer MEDICAID ==
[~2020-10-18] MED LIST changes: +ALDACTONE50 MG PO; +LIPITOR 40MG TA40 MG PO; +MONODOX100 PO; +PRINIVIL5 MG PO; +TYLENOL 500MG500 MG PO
[2020-10-18 15:41] LABS: CALCIUM 8.7 mg/dL (8.4-10.2); CREATININE, serum 1.59 (0.66-1.25); POTASSIUM 4.7 mmol/L (3.4-5.0)
== END ==
LOC: ZLAB.STJ 15:23
PROVIDERS: Internal Medicine Cardiovascular Disease
DX: I50.33 Acute on chronic diastolic (congestive) heart failure (principal); I50.22 Chronic systolic (congestive) heart failure

== ENCOUNTER 2020-12-07 09:08 | Inpatient (IN) | payer MEDICAID ==
[~2020-12-07] VITALS: Ht 172.7 cm; Wt 64.2 kg
[~2020-12-07 09:08] MED LIST changes: +DECADRON6 MG PO
[2020-12-07 11:04] LABS: BASO % 0.2 % (0.0-2.0); EOS # 0.4 (0.0-0.7); GRAN # 11.8 (1.4-6.5); GRAN % 80.8 % (42.2-75.2); LYMPH # 0.9 (1.2-3.4); LYMPH % 6.2 % (20.0-51.0); MEAN CELL VOLUME 82 fl (80.0-100.0); MEAN CORPUSCULAR HGB CONC 31 g/dl (33.0-37.0); MEAN PLATELET VOLUME 10.4 fl (7.4-10.4); MONO # 1.3 (0.1-0.6); MONO % 8.8 % (1.7-9.3); PLATELET COUNT 345 K/mm3 (130-400); RED BLOOD COUNT 3.76 M/mm3 (4.20-5.60); REDCELL DISTRIBUTION WIDTH-CV 23.6 % (11.5-14.5)
[2020-12-07 11:05] LABS: HEMATOCRIT 30.9 % (42.0-52.0); HEMOGLOBIN 9.7 g/dl (13.5-18.0); MEAN CORPUSCULAR HEMOGLOBIN 26 pg (27.0-31.0)
[2020-12-07 11:12] LABS: PROTHROMBIN TIME 22.1 SECONDS (9.7-12.8)
[2020-12-07 11:14] LABS: ALBUMIN 3.1 gm/dL (3.5-5.0); BILIRUBIN,TOTAL 2.1 mg/dL (0.0-1.0); CALCIUM 8.2 mg/dL (8.4-10.2); CREATININE, serum 1.33 (0.66-1.25); POTASSIUM 5.2 mmol/L (3.4-5.0); TOTAL PROTEIN 6.8 gm/dL (6.4-8.2)
--- NOTE | 2020-12-07 14:17 | NUR ---
Patient up to room 326 from ER. X3 assist with slide board to transfer patient to bed. Patient states pain 8/10 to LLE. Requests to be left alone at this time to rest. Coreen POTTER in to see patient.
[2020-12-07 17:15] VITALS: BP 94/61; PULSE 103; TEMP 97.6
[2020-12-07 19:56] VITALS: BP 105/71; PULSE 84; TEMP 98
--- NOTE | 2020-12-07 20:33 | NUR ---
Lab work obtained by warehouse forklift operator Maicol. Offered tan catheter, pt refused. Did take HS meds including [place] for left hip pain. Reports burning of rt heel, elevated on pillow. Did refuse supper, but drank vanilla ensure. SL to right forearm, no redness or swelling noted when flushed.
[2020-12-07 21:31] VITALS: BP 111/58; PULSE 56; TEMP 97.9
--- NOTE | 2020-12-07 22:25 | NUR ---
Pt complaining of heel pain. Medicated with Morphine 2mg IVP at this time.
[2020-12-07 23:39] VITALS: BP 106/58; PULSE 89; TEMP 98.7
--- NOTE | 2020-12-08 01:15 | NUR ---
Pt reports being incontinent of urine, will let us change him at 0200.
--- NOTE | 2020-12-08 02:00 | NUR ---
Bed linens changed and wellington care provided for large urine incontinence.
[2020-12-08 04:28] VITALS: BP 101/63; PULSE 89; TEMP 97.6
--- NOTE | 2020-12-08 05:34 | NUR ---
Medicated with AM meds including [place] 1 tab for left hip pain.
[2020-12-08 07:50] LABS: COLLECTION METHOD CLEAN CATCH
[2020-12-08 08:00] LABS: MUCOUS Present /lpf; PH 6 (5-8); SQUAMOUS EPITHELIAL 0-2 /hpf; URINE APPEARANCE Clear; URINE BACTERIA None Seen /hpf; URINE BILIRUBIN Negative (NEGATIVE); URINE BLOOD Negative (NEGATIVE); URINE COLOR Yellow; URINE GLUCOSE Negative (NEGATIVE); URINE KETONE Negative (NEGATIVE); URINE LEUKOCYTE ESTERASE Negative (NEGATIVE); URINE NITRATE Negative (NEGATIVE); URINE PROTEIN(semi-quant) Negative (NEGATIVE); URINE RBC None Seen /hpf; URINE UROBILINOGEN >=4.0 mg/dL (NEGATIVE)
--- NOTE | 2020-12-08 08:01 | NUR ---
Called Kacey with hospitalist regaurding fluid restrictions & pain medication
--- NOTE | 2020-12-08 08:36 | NUR ---
Patient resting in bed. Ua was sent to lab. Patient was agreeable to use urinal. He is wanting to avoid tan. Patient not willing to wiggle his toes, But did use dopplar to find pulses, they are weak. He refuses janiya & scds to left leg. Right leg scds & janiya on. Will attempt to give bed bath later today, he refuses at this time. Student nurse assisting with care, she tried to help patietn with breakfast, but refuses.
[2020-12-08 08:37] LABS: MEAN CELL VOLUME 80 fl (80.0-100.0); MEAN CORPUSCULAR HEMOGLOBIN 26 pg (27.0-31.0); MEAN CORPUSCULAR HGB CONC 33 g/dl (33.0-37.0); MEAN PLATELET VOLUME 10.3 fl (7.4-10.4); PLATELET COUNT 311 K/mm3 (130-400); RED BLOOD COUNT 3.87 M/mm3 (4.20-5.60); REDCELL DISTRIBUTION WIDTH-CV 23.5 % (11.5-14.5)
[2020-12-08 08:42] LABS: HEMATOCRIT 30.8 % (42.0-52.0)
[2020-12-08 08:47] VITALS: BP 118/72; PULSE 90; TEMP 99.1
[2020-12-08 08:57] LABS: ALBUMIN 3.4 gm/dL (3.5-5.0); BILIRUBIN,TOTAL 4.6 mg/dL (0.0-1.0); CALCIUM 8.3 mg/dL (8.4-10.2); CREATININE, serum 1.35 (0.66-1.25); TOTAL PROTEIN 7.3 gm/dL (6.4-8.2)
[2020-12-08 09:16] LABS: POTASSIUM 6.1 mmol/L (3.4-5.0)
--- NOTE | 2020-12-08 09:21 | NUR ---
CRITICAL HIGH K+ CALLED TO JOSEFINA POTTER, NO NEW ORDERS AT THIS TIME
[2020-12-08 10:35] LABS: CREATININE, serum 1.51 (0.66-1.25)
[2020-12-08 10:40] LABS: POTASSIUM 5.9 mmol/L (3.4-5.0)
--- NOTE | 2020-12-08 11:00 | NUR ---
Patient took half of his kayxlate-not willing to drink second bottle, I educated him on the importance. He is irritated, want to to be left alone. Martita made aware.
--- NOTE | 2020-12-08 11:12 | NUR ---
Patient resting in bed. New orders obtained. Patient hesitant to take kayexlate. Encouragement given. Ivf started.
--- NOTE | 2020-12-08 14:00 | NUR ---
Primary nurse was assisted with [id number] patient care by [employer] student Aure Johnson and [employer] instructor Miriam Butler RN-.
[2020-12-08 14:31] VITALS: BP 95/65; PULSE 90; TEMP 98.7
--- NOTE | 2020-12-08 15:48 | NUR ---
Machine Tool Rebuilder met with patient to discuss discharge planning. [facility]. Patient states he is tired of people asking him how he is feeling. Patient's primary care physician is Dr. Ayala and his DPOA-HC is his friend, Stanton (ph#[phone]). When SW asked patient if he plans to return to [facility] upon discharge he states "maybe. FRANK contacted Cm at [facility] and faxed clinical updates. Patient is on oxygen at baseline. Yesterday, FRANK collaborated with ABUNDIO PortilloCM at [facility] about discharge planning. FRANK will continue to follow.
[2020-12-08 16:31] VITALS: BP 123/73; PULSE 96; TEMP 97.9
[2020-12-08 17:01] LABS: CALCIUM 7.7 mg/dL (8.4-10.2); CREATININE, serum 1.64 (0.66-1.25); POTASSIUM 5.5 mmol/L (3.4-5.0)
--- NOTE | 2020-12-08 19:31 | NUR ---
Patient has rested well this afternoon. Her had a large loose BM. Hygeine provided by STAFF TOXICOLOGIST. Ivf continue per orders. He has been assisted with urinal. He denies nausea. Tolerating diet. Cms intact. Bedside report to night nurse
[2020-12-08 19:33] VITALS: BP 128/70; PULSE 97; TEMP 98
--- NOTE | 2020-12-08 20:00 | NUR ---
Report received, assumed care for shift supervisor film processing. Assessment complete. A&Ox3. Denies nausea/shortness of breath. Rating pain 2/10 on pain scale to left hip-described as intermittent throb/cramp. Denies need for pain medication-fresh ice pack applied. Plan of care discussed for this shift to include HS meds/calling for questions/concerns. Verbalized understanding/call light in reach/bed alarm on. Will monitor.
[2020-12-08 23:00] VITALS: BP 104/52; PULSE 95; TEMP 99.2
--- NOTE | 2020-12-08 23:55 | NUR ---
Resting eyes closed. No s/s of pain noted. Call light in reach/bed alarm on. Will monitor.
[2020-12-09] VITALS (320 sets, daily range): BP systolic 84–113; BP diastolic 51–72; PULSE 47–168; TEMP 97.3–98.7; O2SAT 32–100
--- NOTE | 2020-12-09 05:03 | NUR ---
Called with c/o pain to left hip-rating pain 8/10 on pain scale-described as constant throbbing. Ryder given per dr muniz. Will monitor
[2020-12-09 06:18] LABS: MEAN CELL VOLUME 81 fl (80.0-100.0); MEAN CORPUSCULAR HGB CONC 32 g/dl (33.0-37.0); MEAN PLATELET VOLUME 10.2 fl (7.4-10.4); PLATELET COUNT 252 K/mm3 (130-400); RED BLOOD COUNT 3.43 M/mm3 (4.20-5.60); REDCELL DISTRIBUTION WIDTH-CV 23.4 % (11.5-14.5)
[2020-12-09 06:29] LABS: HEMATOCRIT 27.9 % (42.0-52.0); HEMOGLOBIN 8.9 g/dl (13.5-18.0); MEAN CORPUSCULAR HEMOGLOBIN 26 pg (27.0-31.0)
[2020-12-09 06:30] LABS: CALCIUM 8.1 mg/dL (8.4-10.2); CREATININE, serum 1.41 (0.66-1.25); POTASSIUM 5.4 mmol/L (3.4-5.0)
--- NOTE | 2020-12-09 07:15 | NUR ---
Lying in bed with eyes open. Alert and oriented x4. Denies pain at this time. Says that the pain does increase with movement. Says that he had a cool cloth placed on right foot because his foot was really hot. Patient denies additional needs at this time.
--- NOTE | 2020-12-09 07:49 | NUR ---
RT in room to assess SpO2 level. Zoë says that it is diffucult to get an adequate SpO2 level on the patient. Zoë gets 88%. She increases oxygen to 3L/NC and patient increases to 90%. Patient is resting in bed with eyes closed and is breathing through mouth. No signs or symptoms of discomfort noted.
--- NOTE | 2020-12-09 09:00 | NUR ---
Patient repositioned in bed. Having pain in left hip and would like pain medication. Administer pain medication as prescribed. Patient voids in urinal. Some urine noted in brief but patient refuses to have brief changed at this time and says that it can be changed next time he urinates. Receive call from tele that the patient is Afib with RVR with HR going into 170's at times. Coreen, A OPERATOR student, was just in room and seen patient and still at nurses desk. Informed of tele change. EKG ordered and RT called to come perform EKG. Coreen in to see patient. Patient denies any complaints.
--- NOTE | 2020-12-09 09:13 | NUR ---
RT to room to perform EKG.
--- NOTE | 2020-12-09 09:20 | NUR ---
EKG DONE. STATES ACUTE WV SHOWN TO ACE PABLO NP.
--- NOTE | 2020-12-09 10:01 | NUR ---
Page to Dr. Brooks to inform of consult. Patient assisted to upright position in bed. Patient says that he feels short of air, explain this is due to his heart rate being elevated. REMEDIOS Angela student says patient can eat breakfast tray. Assist patient in setting up tray. Patient says that he thinks he is feeling better but not certain. HR on tele remains 170-190's. Contacted JARED Marrero, on medical to have Coreen contact this nurse. IV fluids were started as ordered.
[2020-12-09 10:08] LABS: INR 1.5 (0.8-3.0); PROTHROMBIN TIME 16.7 SECONDS (9.7-12.8)
--- NOTE | 2020-12-09 10:08 | NUR ---
REMEDIOS Angela student, calls back. Updated on patient. She will discuss further with Dr. Miller
--- NOTE | 2020-12-09 10:12 | NUR ---
Receive call from Coreen that they are going to transfer the patient to ICU. Remove patient food tray and update patient.
--- NOTE | 2020-12-09 10:33 | NUR ---
Report called to Renetta in ICU. Sukh ltransfer patient at this time. Attempt to call SANDY Mensah, only phone number on file is to the patient's cell.
--- NOTE | 2020-12-09 10:42 | NUR ---
Patient to ICU8 via bed at this time with all belongings.
--- NOTE | 2020-12-09 10:53 | NUR ---
Message left for staff at [facility] to contact this nurse to try to obtain phone number to patient SANDY Shakabinh Mensah.
--- NOTE | 2020-12-09 10:56 | NUR ---
Page sent to home Schultz, to provide update that the patient went to ICU.
--- NOTE | 2020-12-09 11:01 | NUR ---
Receive call from ABBEY Schultz with Ortho. Provided update that the patient was transferred to ICU.
--- NOTE | 2020-12-09 11:06 | NUR ---
Dr. Brooks notified of patient's arrival to ICU due to Afib RVR. Orders received please see eMAR.
--- NOTE | 2020-12-09 11:11 | NUR ---
Receive call from Yas with [facility] and she provides phone number for Shaka Mensah, . Message left for Shaka to contact this nurse.
--- NOTE | 2020-12-09 11:38 | NUR ---
Second message left for Shaka to contact this nurse to provide update.
--- NOTE | 2020-12-09 12:06 | NUR ---
Third message left for SANDY Matt, to contact this nurse to provide update.
--- NOTE | 2020-12-09 12:09 | NUR ---
Receive call from Shaka. Provided update on patient status and transfer to ICU. Provided phone number to ICU to Shaka, he will call later. He asked about coming in to see the patient. Explain that due to COVID they are not allowing visitors. He will call ICU later and ask about setting up ZOOM meeting with the patient. Denies further questions at this time.
--- NOTE | 2020-12-09 21:33 | NUR ---
Patient alert and oriented and denies any respiratory distress. This nurse has been unable to reliably obtain an o2 saturation. Day shift RN reported difficult obtaining a saturation as well and reported it was "99%" when it did read. Attempted probes on both hands, forehead and earlobs. Portable o2 sensor also did not apple picker a reading and placing a warm blanket on fingers did not work. RT attempted different probe placement without sucess. Hospitalist notifed; Will just continue to monitor without further interventsion as long as patient remains alert and oriented and does not appear in any distress.
--- NOTE | 2020-12-09 21:46 | NUR ---
Assisted with repositioning. Adamently refused offer to place SCD"s. Denies any shortness of breath or other complaints. Will continue to monitor. Call light left within reach.
--- NOTE | 2020-12-09 23:54 | NUR ---
Awake watching TV. Denies any pain at this time; refused offer for repositioning. No other concerns at this time; will continue to monitor.
[2020-12-10] VITALS (559 sets, daily range): BP systolic 131–141; BP diastolic 65–81; PULSE 75–92; TEMP 98.3–100; O2SAT 34–100
--- NOTE | 2020-12-10 03:30 | NUR ---
PRN morphine administered for self reported pain. Offered to also assist with repositioning for comfort . Patient adamant that he is comfortable where he is and does not want to move. No other concerns at this time.
--- NOTE | 2020-12-10 06:00 | NUR ---
Clarified with Dr. Scott and Ortho PA that surgery for patient was not to take place this morning. marking room supervisor notified.
[2020-12-10 06:45] LABS: INR 1.5 (0.8-3.0); PROTHROMBIN TIME 16.4 SECONDS (9.7-12.8)
--- NOTE | 2020-12-10 10:38 | NUR ---
Paged Dr. Brooks about Amiodorone allison.
--- NOTE | 2020-12-10 11:38 | NUR ---
Paged Dr. Brooks again about patient's amiodorone drip.
--- NOTE | 2020-12-10 11:44 | NUR ---
called Dr. Brooks secondary phone number left message.
--- NOTE | 2020-12-10 13:23 | NUR ---
Dr. Brooks in to see patient. New orders received for amiodorone drip. Please see eMAR.
--- NOTE | 2020-12-10 20:19 | NUR ---
1959 - PT IN ASYSTOLE ON MONITOR. 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 CONTINUES IN ASYSTOLE ON MONITOR. HE IS UNRESPONSIVE TO VOICE AND PAIN. 2002 - UNABLE TO PALPATE PERIPHERAL OR CENTRAL PULSES. NO HEART OR LUNG SOUNDS HEARD ON AUSCULTATION. TIME OF CALLED BY THIS NURSE AND JARED MARTIN. CALLED A P MANAGER AND DION KAY, TO NOTIFY DPOA.
--- NOTE | 2020-12-10 20:59 | NUR ---
[facility] notified of . Referral #: [id number]. Patient not a candidate for donation. Via Jaclyn Delaney notified of also.
== END 2020-12-10 22:50 | disposition expired | DRG 535 ==
LOC: COL.ER 09:08 → ICU 11:41 → SURG 11:41 → ICU 12-09 10:45
PROVIDERS: Emergency Medicine; Orthopaedic Surgery; Student in an Organized Health Care Education/Training Program; ADMIT Family Medicine
DX: S72.142A Displaced intertrochanteric fracture of left femur, initial encounter for closed fracture (principal); U07.1 COVID-19; J12.82 Pneumonia due to coronavirus disease 2019; I50.22 Chronic systolic (congestive) heart failure; I13.0 Hypertensive heart and chronic kidney disease with heart failure and stage 1 through stage 4 chronic kidney disease, or unspecified chronic kidney disease; I48.91 Unspecified atrial fibrillation; E87.5 Hyperkalemia; I25.10 Atherosclerotic heart disease of native coronary artery without angina pectoris; Z66 Do not resuscitate; E78.5 Hyperlipidemia, unspecified; D53.9 Nutritional anemia, unspecified; K21.9 Gastro-esophageal reflux disease without esophagitis; J44.9 Chronic obstructive pulmonary disease, unspecified; N18.30 Chronic kidney disease, stage 3 unspecified; N40.0 Benign prostatic hyperplasia without lower urinary tract symptoms; G62.9 Polyneuropathy, unspecified; Z79.82 Long term (current) use of aspirin; Z79.01 Long term (current) use of anticoagulants; Z86.73 Personal history of transient ischemic attack (TIA), and cerebral infarction without residual deficits; Z86.718 Personal history of other venous thrombosis and embolism; Z87.891 Personal history of nicotine dependence; Z95.810 Presence of automatic (implantable) cardiac defibrillator
CPT/HCPCS: 99223-AI; 99233-AI; A9284; J0282; J1160; J2270; J7030; J7050; J7060